=== PATIENT | male | born 1985 | race Caucasian/White ===

== ENCOUNTER 2016-12-19 08:39 | Emergency (ER) | payer OTHER ==
[~2016-12-19] VITALS: Ht 172.7 cm; Wt 83.6 kg
[~2016-12-19 08:39] MED LIST: MULT-506 PO
[2016-12-19 08:42] VITALS: BP 156/100; TEMP 36.6; Ht 172.7 cm; Wt 83.6 kg
[2016-12-19] MEDS ORDERED: KETO10TA PO (09:26)
[2016-12-19 09:33] VITALS: PULSE 65; O2SAT 97
--- NOTE | 2016-12-19 15:48 | EMERGENCY ROOM VISIT NOTE ---
ED Visit Note First contact with patient: 08:47 CHIEF COMPLAINT: Tooth pain. HISTORY OF PRESENT ILLNESS: Mr. Nick is a 31-year-old white male who ambulates into the complaining of dental pain. He approximately 2 weeks ago he tooth #30 while chewing food. He has had no pain for 2 weeks until last night. He reports an acute onset of a throbbing discomfort. Since its onset approximately 12 hours ago his pain has been constant. He currently rates his discomfort 9/10. He reports radiation of his pain up into the temporal area and down into the right lateral neck. His pain worsens with palpation of the tooth. He has not identified any alleviating factors related to the pain. He reports he has been using ibuprofen without relief of his discomfort. He denies any associated symptoms including fevers, chills, sweats, skin eruptions, skin color changes, difficulty swallowing, difficulty speaking, facial swelling. REVIEW OF SYSTEMS: As noted above in History of Present Illness. 8 body systems were reviewed with this patient and found to be negative unless noted above otherwise. PMH: Asthma, bronchitis, pneumonia. CURRENT MEDICATION: Patient denies. ALLERGIES TO MEDICATION: Tramadol. SOCIAL HISTORY: Patient is currently employed; he feels safe in his home environment; he denies tobacco and alcohol use. PHYSICAL EXAM: Vital Signs: Date Time Temp Pulse Resp B/P Pulse Ox O2 Delivery O2 Flow Rate FiO2 12/19/16 09:33 65 17 97 12/19/16 08:42 36.6 61 18 156/100 100 Room Air General: 31 year-old white male in mild distress due to pain, nontoxic appearing , afebrile and hemodynamically stable. Neurological: Awake, alert and oriented to person, place and time. Answering questions appropriately and following commands. Normal gait. Good hand eye coordination. No focal motor or sensory deficits. Skin: Warm, dry and pink. No soft tissue lesions, rashes, or trauma noted. HEENT: Atraumatic and normocephalic. Oral cavity is moist and pink. Airway is patent. Uvula is midline and no abscesses are seen. Speech is normal. No intraoral trauma is noted. No gingival erythema or edema. Multiple areas of tooth decay is noted; most specifically tooth #30 has had what appears to be at least 2 caries filled. No abscesses observed were palpated. No cervical or submandibular lymphadenopathy. ED COURSE: Patient is assessed as noted above. Patient is on currently a medication treatment plan for his previous chronic pains. In reviewing his medical records he has been seen her multiple times over the years for dental injuries and dental trauma. He has not followed up with dentistry because he reports he is not having any health insurance at the current time because he is laid off. We did have a lengthy conversation about conservative measures for managing his current pain. Patient is educated about his findings and instructed on his treatment plan; he verbalizes understanding and agreement with this plan. CLINIC IMPRESSION: Dentalgia. DISPOSITION: Patient discharged home in stable condition; prior to departure she was reassessed and subjectively reported she was feeling better and rated his discomfort 5/10. PLAN: Use 10 mg of Toradol every 6 hours for pain and alternate every 3 hours with 650 mg of acetaminophen. Consider covering your affected teeth with dental wax and using a liquid/ mechanical soft diet as we discussed. You may follow-up with Dr. Marquez Keller, DMD You should return ED for worsening symptoms, fevers, facial swelling or any new/ concerning symptoms.
== END 2016-12-19 09:34 | disposition home or self-care (01) ==
LOC: C.EDB 08:41
DX: K08.89 Other specified disorders of teeth and supporting structures (principal); J45.909 Unspecified asthma, uncomplicated

== ENCOUNTER 2017-01-28 07:35 | Emergency (ER) | payer OTHER ==
[~2017-01-28] VITALS: Ht 172.7 cm; Wt 83.7 kg
[2017-01-28 07:36] VITALS: TEMP 36.7; Ht 172.7 cm; Wt 83.7 kg
[2017-01-28] MEDS ORDERED: hydrOXYzine HCL 25 MG TAB PO STA (08:14)
--- NOTE | 2017-01-28 08:22 | EMERGENCY ROOM VISIT NOTE ---
History First contact with patient: 08:12 Chief Complaint: MENTAL HEALTH EVALUATION Stated Complaint: SICK IN STOMACH, DEPRESSED History of Present Illness The patient is a 31 year old male who presents to the Emergency Room with complaints of depression. The patient is an IV drug user who over the last week has restarted taking Heroin (last use 4 days ago) and Methamphetamines (last use 8 hours ago). His 3 weeks ago as a result of a brain aneurysm and since then has felt more depressed. He currently feels safe at home, denies suicidal or homicidal ideations, and has never attempted to commit suicide in the past. He states he has overdosed 3 times previously but never actually been taken to the hospital. He states that he feels if he goes home his depression will drive him into deeper drug use and he is worried about his health. He has not slept in 5 days on his current drug binge. He has chronic hepatitis C. He has been in inpatient rehab in 2013, then was arrested afterwards for theft and heroin possession. He is currently on probation and stated he cannot go to rehab because he will lose his job and go back to senior care. He would like to be admitted for inpatient therapy because he cannot think right and is worried his drug use will hurt himself at this point. Review of Systems See HPI for pertinent positives and negatives. A total of ten systems were reviewed and were otherwise negative. Past Medical/Surgical History Medical Problems: (1) ANXIETY STATE NOS (2) ASTHMA, UNSPECIFIED, W (ACUTE) EXACERBATION (3) BACKACHE NOS (4) Bronchitis (5) CHRONIC SINUSITIS NOS (6) FAM HX-CARDIOVAS DIS NEC (7) FAM HX-DIABETES MELLITUS (8) FAM HX-ISCHEM HEART DIS (9) FAMILY HISTORY OF OTHER CARDIOVASCULAR DISEASES (10) Pneumonia (11) VASECTOMY STATUS Family History Cancer Diabetes mellitus Heart disease Hypertension Lung disease Social History Smoking Status: Never Smoker Alcohol Use: occasionally Drug Use: none Marital Status: , in relationship Occupation Status: employed Current/Historical Medications Scheduled [heroine ], Unknown Dose INJ DAILY [meth], Unknown Dose INH DAILY Allergies Coded Allergies: Animal Dander (Unverified Allergy, Unknown, WATERY EYES, RUNNY NOSE, SNEEZING, 01/28/17) Tramadol (Verified Allergy, Unknown, SEIZURE, 01/28/17) Physical Exam Vital Signs Date Time Temp Pulse Resp B/P (MAP) Pulse Ox O2 Delivery O2 Flow Rate FiO2 01/28/17 13:51 117 20 120/79 100 01/28/17 12:51 77 20 130/80 97 01/28/17 11:19 80 20 125/85 96 01/28/17 09:40 94 20 128/86 95 Room Air 01/28/17 07:36 36.7 120 18 147/81 98 Room Air Physical Exam GENERAL: Awake, alert, in no distress HENT: Normocephalic, atraumatic. Oropharynx unremarkable. Lesions on the side of his inner cheeks due to biting from meth use. EYES: Normal conjunctiva. Sclera non-icteric. NECK: Supple. trachea midline. RESPIRATORY: Clear to auscultation. CARDIAC: Regular rate, normal rhythm. Extremities warm and well perfused. Pulses equal. ABDOMEN: Soft, non-distended. No tenderness to palpation. No rebound or guarding. No masses. RECTAL: Deferred. MUSCULOSKELETAL: Chest examination reveals no tenderness. LOWER EXTREMITIES: Calves are equal size bilaterally and non-tender. No edema. No discoloration. NEURO: Normal sensorium. No sensory or motor deficits noted. SKIN: Abrasion over right elbow from fall Medical Decision & Procedures Laboratory Results 01/28/17 09:00 Red Blood Count 5.97, Mean Corpuscular Volume 81.7, Mean Corpuscular Hemoglobin 28.0, Mean Corpuscular Hemoglobin Concent 34.2, Mean Platelet Volume 10.6, Neutrophils (%) (Auto) 61.5, Lymphocytes (%) (Auto) 21.0, Monocytes (%) (Auto) 13.4, Eosinophils (%) (Auto) 3.0, Basophils (%) (Auto) 0.4, Neutrophils # (Auto ) 6.15, Lymphocytes # (Auto) 2.10, Monocytes # (Auto) 1.34, Eosinophils # (Auto ) 0.30, Basophils # (Auto) 0.04 01/28/17 09:00 Test 01/28/17 09:00 White Blood Count 10.00 K/uL (4.8-10.8) Red Blood Count 5.97 M/uL (4.7-6.1) Hemoglobin 16.7 g/dL (14.0-18.0) Hematocrit 48.8 % (42-52) Mean Corpuscular Volume 81.7 fL (80-100) Mean Corpuscular Hemoglobin 28.0 pg (25-34) Mean Corpuscular Hemoglobin Concent 34.2 g/dl (32-36) Platelet Count 339 K/uL (130-400) Mean Platelet Volume 10.6 fL (7.4-10.4) Neutrophils (%) (Auto) 61.5 % Lymphocytes (%) (Auto) 21.0 % Monocytes (%) (Auto) 13.4 % Eosinophils (%) (Auto) 3.0 % Basophils (%) (Auto) 0.4 % Neutrophils # (Auto) 6.15 K/uL (1.4-6.5) Lymphocytes # (Auto) 2.10 K/uL (1.2-3.4) Monocytes # (Auto) 1.34 K/uL (0.11-0.59) Eosinophils # (Auto) 0.30 K/uL (0-0.5) Basophils # (Auto) 0.04 K/uL (0-0.2) RDW Standard Deviation 40.7 fL (36.4-46.3) RDW Coefficient of Variation 13.6 % (11.5-14.5) Immature Granulocyte % (Auto) 0.7 % Immature Granulocyte # (Auto) 0.07 K/uL (0.00-0.02) Anion Gap 9.0 mmol/L (3-11) Est Creatinine Clear Calc Drug Dose 92.3 ml/min Estimated GFR () 91.5 Estimated GFR (Non- 79.0 BUN/Creatinine Ratio 13.6 (10-20) Calcium Level 9.0 mg/dl (8.5-10.1) Thyroid Stimulating Hormone (TSH) 3.590 uIu/ml (0.300-4.500) Ethyl Alcohol mg/dL < 3.0 mg/dl (0-3) Medications Administered Medications (Trade) Dose Ordered Sig/Bradley Route Start Time Stop Time Status Last Admin Dose Admin Hydroxyzine HCl (Vistaril Tab) 25 mg NOW STAT PO 01/28/17 08:14 01/28/17 08:15 DC 01/28/17 08:14 25 MG Departure Information Referrals No Doctor, Assigned (PCP) Patient Instructions My [facility]
--- NOTE | 2017-01-28 08:35 | EMERGENCY ROOM VISIT NOTE ---
History Report prepared by [place]: Sailaja Little Under the Supervision of: Dr. Zabrina Garcia M.D. First contact with patient: 07:48 Chief Complaint: MENTAL HEALTH EVALUATION Stated Complaint: SICK IN STOMACH, DEPRESSED History of Present Illness The patient is a 31 year old male who presents to the Emergency Room for a mental health evaluation after feeling worsening depression over the last 3 weeks. The patient states that his friend of a brain aneurysm 3 weeks ago and he has been feeling more depressed since her . He reports that he started using heroin and methamphetamines when he was 28 years old and was arrested for theft and possession before going to senior care. He notes that he went to rehab after he was released from senior care and had been clean following rehab. The patient states that he has been feeling more depressed since his friend and started using heroin and meth again. He notes that his last heroin use was 5 days ago and his last meth use was 5 hours ago. He reports that he has not been sleeping over the last 5 days and does not want to use drugs anymore. He would like to stay here in the hospital for 3 days but is concerned with staying inpatient as he is on parole. The patient reports a history of Hepatitis C. He denies any suicidal or homicidal ideation. Source of History: patient Onset: 3 weeks ago Position: other (mental health) Quality: other (depression) Timing: constant Modifying Factors (Worsening): other (wifes ) Note: Pt denies suicidal or homicidal ideation. Review of Systems See HPI for pertinent positives & negatives. A total of 10 systems reviewed and were otherwise negative. Past Medical & Surgical Medical Problems: (1) ANXIETY STATE NOS (2) ASTHMA, UNSPECIFIED, W (ACUTE) EXACERBATION (3) BACKACHE NOS (4) Bronchitis (5) CHRONIC SINUSITIS NOS (6) FAM HX-CARDIOVAS DIS NEC (7) FAM HX-DIABETES MELLITUS (8) FAM HX-ISCHEM HEART DIS (9) FAMILY HISTORY OF OTHER CARDIOVASCULAR DISEASES (10) Pneumonia (11) VASECTOMY STATUS Family History Cancer Diabetes mellitus Heart disease Hypertension Lung disease Social History Smoking Status: Never Smoker Alcohol Use: occasionally Drug Use: heroin, other (meth) Marital Status: Housing Status: lives alone Occupation Status: employed Current/Historical Medications Scheduled [heroine ], Unknown Dose INJ DAILY [meth], Unknown Dose INH DAILY Allergies Coded Allergies: Animal Dander (Unverified Allergy, Unknown, WATERY EYES, RUNNY NOSE, SNEEZING, 01/28/17) Tramadol (Verified Allergy, Unknown, SEIZURE, 01/28/17) Physical Exam Vital Signs Date Time Temp Pulse Resp B/P Pulse Ox O2 Delivery O2 Flow Rate FiO2 01/28/17 13:51 117 20 120/79 100 01/28/17 12:51 77 20 130/80 97 01/28/17 11:19 80 20 125/85 96 01/28/17 09:40 94 20 128/86 95 Room Air 01/28/17 07:36 36.7 120 18 147/81 98 Room Air Physical Exam Vital signs reviewed. General: Well-appearing 31 yo male, disheveled, in no significant distress. HEENT: No scleral icterus, PERRLA, neck supple. Atraumatic. Cardiovascular: Regular rate and rhythm, no extra sounds. Pulmonary: Clear to auscultation bilaterally, normal work of breathing. Abdomen: Soft, nontender, nondistended, positive bowel sounds. Musculoskeletal: Atraumatic, no peripheral edema. Neurologic: Patient awake alert and oriented x 3, full strength in all 4 extremities. Cranial nerves 2 through 12 grossly intact. Skin: Warm, dry, no rash Psych: Denies suicidal or homicidal ideations. Medical Decision & Procedures Laboratory Results 01/28/17 09:00 Red Blood Count 5.97, Mean Corpuscular Volume 81.7, Mean Corpuscular Hemoglobin 28.0, Mean Corpuscular Hemoglobin Concent 34.2, Mean Platelet Volume 10.6, Neutrophils (%) (Auto) 61.5, Lymphocytes (%) (Auto) 21.0, Monocytes (%) (Auto) 13.4, Eosinophils (%) (Auto) 3.0, Basophils (%) (Auto) 0.4, Neutrophils # (Auto ) 6.15, Lymphocytes # (Auto) 2.10, Monocytes # (Auto) 1.34, Eosinophils # (Auto ) 0.30, Basophils # (Auto) 0.04 01/28/17 09:00 Test 01/28/17 09:00 White Blood Count 10.00 K/uL (4.8-10.8) Red Blood Count 5.97 M/uL (4.7-6.1) Hemoglobin 16.7 g/dL (14.0-18.0) Hematocrit 48.8 % (42-52) Mean Corpuscular Volume 81.7 fL (80-100) Mean Corpuscular Hemoglobin 28.0 pg (25-34) Mean Corpuscular Hemoglobin Concent 34.2 g/dl (32-36) Platelet Count 339 K/uL (130-400) Mean Platelet Volume 10.6 fL (7.4-10.4) Neutrophils (%) (Auto) 61.5 % Lymphocytes (%) (Auto) 21.0 % Monocytes (%) (Auto) 13.4 % Eosinophils (%) (Auto) 3.0 % Basophils (%) (Auto) 0.4 % Neutrophils # (Auto) 6.15 K/uL (1.4-6.5) Lymphocytes # (Auto) 2.10 K/uL (1.2-3.4) Monocytes # (Auto) 1.34 K/uL (0.11-0.59) Eosinophils # (Auto) 0.30 K/uL (0-0.5) Basophils # (Auto) 0.04 K/uL (0-0.2) RDW Standard Deviation 40.7 fL (36.4-46.3) RDW Coefficient of Variation 13.6 % (11.5-14.5) Immature Granulocyte % (Auto) 0.7 % Immature Granulocyte # (Auto) 0.07 K/uL (0.00-0.02) Anion Gap 9.0 mmol/L (3-11) Est Creatinine Clear Calc Drug Dose 92.3 ml/min Estimated GFR () 91.5 Estimated GFR (Non- 79.0 BUN/Creatinine Ratio 13.6 (10-20) Calcium Level 9.0 mg/dl (8.5-10.1) Thyroid Stimulating Hormone (TSH) 3.590 uIu/ml (0.300-4.500) Ethyl Alcohol mg/dL < 3.0 mg/dl (0-3) Laboratory results per my review. Medications Administered Medications (Trade) Dose Ordered Sig/Bradley Route Start Time Stop Time Status Last Admin Dose Admin Hydroxyzine HCl (Vistaril Tab) 25 mg NOW STAT PO 01/28/17 08:14 01/28/17 08:15 DC 01/28/17 08:14 25 MG ECG Indication: toxicologic Rate (beats per minute): 81 Rhythm: normal sinus Findings: other (J point elevation consistent with early repolarization ) ED Course 0758: Past medical records reviewed. The patient was evaluated in room A7. A complete history and physical examination was performed. 0814: Vistaril Tab 25mg PO. 1204: The patient feels safe at home and does not qualify for inpatient psychiatric care. 1314: Upon reevaluation, the patient appeared to have improvement of his symptoms. I discussed findings with the patient. He verbalized agreement of the treatment plan. The patient was discharged home with a ride. Medical Decision Differential diagnosis: Etiologies such as mood disorder, infection, hypoglycemia, electrolyte abnormalities, cardiac sources, intracerebral event, toxicologic, neurologic, as well as others were entertained. Medication Reconciliation: I attest that I have personally reviewed the patient' s current medication list. Blood Pressure Screening: Patient was found to have normal blood pressure on screening and does not require follow-up. This patient was evaluated and appeared to be in no significant distress. The patient is requesting inpatient treatment for his "depression" and his fear of becoming suicidal in light of his recent drug binge. The patient denies any mental health admissions previously however states he was admitted to [facility] several years ago. The patient was medically cleared and evaluated by the 3 S. nurse liaison, Brianna. The patient's case was discussed with Dr. Maciel and he has felt not to meet criteria for inpatient psychiatric treatment. The patient is making no suicidal statements. I do believe the patient has a large component of substance abuse as it relates to his mood disorder. Outpatient resources were given to the patient. He was discharged to a friend and advised to follow-up with his primary care physician. He will return to the ER for worsening of symptoms or any medical concerns. Impression Primary Impression: Substance abuse Additional Impression: Mood disorder Scribe Attestation The scribe's documentation has been prepared under my direction and personally reviewed by me in its entirety. I confirm that the note above accurately reflects all work, treatment, procedures, and medical decision making performed by me. Departure Information Dispostion Home / Self-Care Referrals No Doctor, Assigned (PCP) Forms HOME CARE DOCUMENTATION FORM, IMPORTANT VISIT INFORMATION Patient Instructions My [facility] Additional Instructions Please follow up with outpatient resources as discussed. Return to emergency for worsening of symptoms or any medical concerns. Problem Qualifiers
[2017-01-28] MEDS ORDERED: [UNRECOGNIZED DRUG - REMARK] INJ (08:52)
[2017-01-28] MEDS ORDERED: meth INH (08:52)
[2017-01-28 09:23] LABS: BASO % 0.4 %; BASO ABS # 0.04 K/uL (0-0.2); COMPLETE YES; HEMATOCRIT 48.8 % (42-52); IG% 0.7 %; MEAN CELL VOLUME 81.7 fL (80-100); MEAN CORPUSCULAR HGB CONC 34.2 g/dl (32-36); MEAN PLATELET VOLUME 10.6 fL (7.4-10.4); MONO % 13.4 %; NEUT % 61.5 %; PLATELET COUNT 339 K/uL (130-400); RED BLOOD COUNT 5.97 M/uL (4.7-6.1)
[2017-01-28 09:43] LABS: BUN/CREATININE RATIO 13.6 (10-20); CREATININE 1.2 mg/dl (0.60-1.40)
[2017-01-28 09:53] LABS: THYROID STIMULATING HORMONE 3.59 uIu/ml (0.300-4.500)
[2017-01-28 13:51] VITALS: BP 120/79; PULSE 117; O2SAT 100
== END 2017-01-28 13:14 | disposition home or self-care (01) ==
LOC: C.EDB 07:36 → C.EDA 13:14
DX: F19.10 Other psychoactive substance abuse, uncomplicated (principal); F39 Unspecified mood [affective] disorder; F41.9 Anxiety disorder, unspecified; J45.909 Unspecified asthma, uncomplicated; Z88.8 Allergy status to other drugs, medicaments and biological substances; Z91.09 Other allergy status, other than to drugs and biological substances; Z98.52 Vasectomy status; Z80.9 Family history of malignant neoplasm, unspecified; Z83.3 Family history of diabetes mellitus; Z82.49 Family history of ischemic heart disease and other diseases of the circulatory system

== ENCOUNTER 2017-06-04 18:55 | Emergency (ER) | payer OTHER ==
[~2017-06-04] VITALS: Ht 174 cm; Wt 79.6 kg
[~2017-06-04 18:55] MED LIST changes: -MULT-506 PO; +[UNRECOGNIZED DRUG - REMARK] INJ; +meth INH
[2017-06-04 19:18] VITALS: TEMP 36.7; Ht 174 cm; Wt 79.6 kg
[2017-06-04] MEDS ORDERED: OPTIRAY 320 IV PRN (20:00)
[2017-06-04 20:19] LABS: BASO % 0.3 %; BASO ABS # 0.03 K/uL (0-0.2); COMPLETE YES; EOS % 1.9 %; HEMATOCRIT 38.1 % (42-52); IG% 0.1 %; LYMPH % 26.1 %; LYMPH ABS # 2.62 K/uL (1.2-3.4); MEAN CELL VOLUME 79.2 fL (80-100); MEAN CORPUSCULAR HEMOGLOBIN 26.4 pg (25-34); MEAN CORPUSCULAR HGB CONC 33.3 g/dl (32-36); MEAN PLATELET VOLUME 10.3 fL (7.4-10.4); MONO % 11.2 %; NEUT % 60.4 %; PLATELET COUNT 334 K/uL (130-400); RED BLOOD COUNT 4.81 M/uL (4.7-6.1); WHITE BLOOD COUNT 10.04 K/uL (4.8-10.8)
[2017-06-04 20:36] LABS: BUN/CREATININE RATIO 11.3 (10-20); CALCIUM 8.8 mg/dl (8.5-10.1); CREATININE 1.2 mg/dl (0.60-1.40); POTASSIUM 3.7 mmol/L (3.5-5.1)
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
[2017-06-04] MEDS ORDERED: CYCL10TA6 PO (23:20)
[2017-06-04] MEDS ORDERED: FLEXERIL HOME PACK 10 MG VIAL PO ONE (23:30)
[2017-06-04 23:46] VITALS: BP 129/66; PULSE 52; O2SAT 98
== END 2017-06-04 23:53 | disposition home or self-care (01) ==
LOC: C.EDB 18:56 → C.EDD 23:53
DX: M54.5 Low back pain (principal); R10.84 Generalized abdominal pain; V89.2XXA Person injured in unspecified motor-vehicle accident, traffic, initial encounter; F41.9 Anxiety disorder, unspecified; J45.909 Unspecified asthma, uncomplicated; Z83.3 Family history of diabetes mellitus; Z82.49 Family history of ischemic heart disease and other diseases of the circulatory system; Z87.01 Personal history of pneumonia (recurrent); Z98.52 Vasectomy status

== ENCOUNTER 2018-01-12 16:08 | Emergency (ER) | payer OTHER ==
[~2018-01-12] VITALS: Ht 172.7 cm; Wt 84.4 kg
[2018-01-12 16:11] VITALS: TEMP 36.7; Ht 172.7 cm; Wt 84.4 kg
[2018-01-12] MEDS ORDERED: CEFTRIAXONE SOD INJ 1 GM ADDVIAL IV STA (16:28)
[2018-01-12] MEDS ORDERED: SODIUM CHLORIDE 0.9% 1000ML 1,000 ML IV STA (16:28)
[2018-01-12] MEDS ORDERED: BUPR8SUB19 SL (16:41)
[2018-01-12 17:08] LABS: BASO % 0.2 %; BASO ABS # 0.02 K/uL (0-0.2); EOS % 3.5 %; HEMATOCRIT 39.5 % (42-52); HEMOGLOBIN 13.8 g/dL (14.0-18.0); IG# 0.03 K/uL (0.00-0.02); LYMPH % 24.1 %; LYMPH ABS # 2.05 K/uL (1.2-3.4); MEAN CELL VOLUME 78.8 fL (80-100); MEAN CORPUSCULAR HEMOGLOBIN 27.5 pg (25-34); MEAN CORPUSCULAR HGB CONC 34.9 g/dl (32-36); MEAN PLATELET VOLUME 10.1 fL (7.4-10.4); MONO % 14.3 %; MONO ABS # 1.21 K/uL (0.11-0.59); NEUT % 57.5 %; NEUT ABS # 4.88 K/uL (1.4-6.5); PLATELET COUNT 217 K/uL (130-400); RED CELL DISTRIBUTION WIDTH CV 12.9 % (11.5-14.5); RED CELL DISTRIBUTION WIDTH SD 36.8 fL (36.4-46.3); WHITE BLOOD COUNT 8.49 K/uL (4.8-10.8)
[2018-01-12 17:16] LABS: PTT PATIENT 30.1 SECONDS (21.0-31.0)
--- NOTE | 2018-01-12 17:16 | DIAGNOSTIC IMAGING REPORT ---
R HAND MIN 3 VIEWS ROUTINE CLINICAL HISTORY: 32 years-old Male presenting with right hand swelling/pain/redness, hx. heroin use. TECHNIQUE: Frontal, oblique, and lateral views of the right hand were obtained. COMPARISON: 02/12/2010. FINDINGS: No osseous erosion or periosteal reaction. No acute fracture or malalignment. No advanced degenerative change. Diffuse soft tissue swelling. Primarily over the dorsum of the hand. No soft tissue emphysema. IMPRESSION: No radiographic evidence of osteomyelitis. Electronically signed by: Connor Hu M.D. 01/12/2018 5:14 PM Dictated Date/Time: 01/12/2018 5:12 PM
[2018-01-12 17:23] LABS: ALBUMIN 3.5 gm/dl (3.4-5.0); ALT/SGPT 39 U/L (12-78); BLOOD UREA NITROGEN 12 mg/dl (7-18); CALCIUM 8.8 mg/dl (8.5-10.1); CARBON DIOXIDE 29 mmol/L (21-32); CREATININE 1.11 mg/dl (0.60-1.40); GLUCOSE 90 mg/dl (70-99); SODIUM 136 mmol/L (136-145)
[2018-01-12 17:28] LABS: ALKALINE PHOSPHATASE 59 U/L (45-117); AST/SGOT 34 U/L (15-37); TOTAL PROTEIN 7.7 gm/dl (6.4-8.2)
--- NOTE | 2018-01-12 17:35 | DIAGNOSTIC IMAGING REPORT ---
R WRIST W/NAVICULAR MIN 3 VIEWS CLINICAL HISTORY: 32 years-old Male presenting with right wrist swelling/pain/redness, hx. heroin use. TECHNIQUE: Frontal, bilateral oblique, lateral, and scaphoid views of the right wrist were obtained. COMPARISON: 02/12/2010. FINDINGS: No periosteal reaction or osseous erosion. No acute fracture or malalignment. No advanced degenerative change. Extensive soft tissue swelling. No soft tissue emphysema. IMPRESSION: No radiographic evidence of osteomyelitis. MR is more sensitive for this diagnosis. Electronically signed by: Connor Hu M.D. 01/12/2018 5:34 PM Dictated Date/Time: 01/12/2018 5:30 PM
--- NOTE | 2018-01-12 17:51 | DIAGNOSTIC IMAGING REPORT ---
R EXTREMITY NONVASCULAR LIMITED CLINICAL HISTORY: 32 years-old Male presenting with right hand/wrist swelling/red, assess for abscess, heroin use. TECHNIQUE: Real-time grayscale Doppler ultrasound imaging of the right hand was performed for a focused evaluation at the site of clinical concern. Color Doppler ultrasound imaging was also performed. COMPARISON: Plain radiographs performed earlier the same day. FINDINGS: Extensive skin thickening and subcutaneous edema at the site of clinical interest. Hyperemia also evident. No focal fluid collection. Patent vasculature. No sonographic evidence of foreign body. IMPRESSION: 1. Findings most consistent with cellulitis. No evidence of abscess or foreign body. Electronically signed by: Connor Hu M.D. 01/12/2018 5:50 PM Dictated Date/Time: 01/12/2018 5:49 PM
[2018-01-12] MEDS ORDERED: SULF800T23 PO (18:48)
[2018-01-12] MEDS ORDERED: CEPH500C PO (18:48)
--- NOTE | 2018-01-12 18:49 | EMERGENCY ROOM VISIT NOTE ---
ED Visit Note First contact with patient: 16:15 CHIEF COMPLAINT: Infection of the right hand HISTORY OF PRESENT ILLNESS: This 32-year-old male patient presents to the emergency department, ambulatory, complaining of swelling and redness of the right hand. The patient is an IV drug user. He states he was shooting up heroin in his right hand on the anterior and posterior medial aspects 2 days ago. He states he noticed the pain yesterday and significantly worsening today. He states today, the pain is increased and radiating up his arms. The area has become red, warm, and very painful. 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 He does report some diaphoresis, chills, and fatigue. The patient denies fever, nausea, or loss of appetite. Movement of the hands and wrist is moderately decreased because of the pain. The patient's tetanus shot is up to date. REVIEW OF SYSTEMS: A review of systems was performed with positives and pertinent negatives listed in the history of present illness. All other systems were reviewed and are negative. ALLERGIES: Animal dander, tramadol MEDICATIONS: None PMH: None SOCIAL HISTORY: The patient lives locally with family. He is an IV drug user. He denies alcohol, tobacco use. PHYSICAL EXAM: Vital Signs: Reviewed Nurse's notes, Temperature 36.7C, vital signs stable. GENERAL: This is a 32-year-old white male, in no acute distress, is non toxic in appearance, well-developed, well-nourished. SKIN: The right hand is red, warm, very tender, and swollen from the MCPs to the proximal wrist. There is no lymphangitic streaking. There is no discharge. There is fluctuance. There is a small area of induration on the anterior medial aspect of the wrist. HEART: Regular rate and rhythm without murmur, gallop, or rub. LUNGS: Clear to auscultation bilaterally without wheezes, rales, or rhonchi. NEURO: Alert and oriented to person, place, and time. Normal sensation to light and sharp touch. Capillary reflex less than 2 seconds. Peripheral pulses 2 + bilaterally. RADIOLOGY: R WRIST W/NAVICULAR MIN 3 VIEWS CLINICAL HISTORY: 32 years-old Male presenting with right wrist swelling/pain/redness, hx. heroin use. TECHNIQUE: Frontal, bilateral oblique, lateral, and scaphoid views of the right wrist were obtained. COMPARISON: 02/12/2010. FINDINGS: No periosteal reaction or osseous erosion. No acute fracture or malalignment. No advanced degenerative change. Extensive soft tissue swelling. No soft tissue emphysema. IMPRESSION: No radiographic evidence of osteomyelitis. MR is more sensitive for this diagnosis. Electronically signed by: Connor Hu M.D. 01/12/2018 5:34 PM Dictated Date/Time: 01/12/2018 5:30 PM R HAND MIN 3 VIEWS ROUTINE CLINICAL HISTORY: 32 years-old Male presenting with right hand swelling/pain/redness, hx. heroin use. TECHNIQUE: Frontal, oblique, and lateral views of the right hand were obtained. COMPARISON: 02/12/2010. FINDINGS: No osseous erosion or periosteal reaction. No acute fracture or malalignment. No advanced degenerative change. Diffuse soft tissue swelling. Primarily over the dorsum of the hand. No soft tissue emphysema. IMPRESSION: No radiographic evidence of osteomyelitis. Electronically signed by: Connor Hu M.D. 01/12/2018 5:14 PM Dictated Date/Time: 01/12/2018 5:12 PM R EXTREMITY NONVASCULAR LIMITED CLINICAL HISTORY: 32 years-old Male presenting with right hand/wrist swelling/red, assess for abscess, heroin use. TECHNIQUE: Real-time grayscale Doppler ultrasound imaging of the right hand was performed for a focused evaluation at the site of clinical concern. Color Doppler ultrasound imaging was also performed. COMPARISON: Plain radiographs performed earlier the same day. FINDINGS: Extensive skin thickening and subcutaneous edema at the site of clinical interest. Hyperemia also evident. No focal fluid collection. Patent vasculature. No sonographic evidence of foreign body. IMPRESSION: 1. Findings most consistent with cellulitis. No evidence of abscess or foreign body. Electronically signed by: Connor Hu M.D. 01/12/2018 5:50 PM Dictated Date/Time: 01/12/2018 5:49 PM EMERGENCY DEPARTMENT COURSE: I examined the patient. IV access obtained, labs drawn. Blood cultures drawn. Imaging performed and reviewed by myself and radiologist as above. Labs reveal very mild anemia. There is no leukocytosis or thrombocytopenia. CMP is without renal, hepatic, electrolyte abnormalities. Troponin is negative. C-reactive protein is elevated at 3.31. Coagulation studies are normal. Urine drug screen was positive for opiates and cocaine. Urinalysis did not reveal signs of infection or blood. The patient was given 1 g IV Rocephin and 1 L normal saline solution. The redness and swelling seem to have mildly improved. He is afebrile and labs are without significant abnormality, and I do feel that outpatient treatment with antibiotics is reasonable. I did discuss the importance of close outpatient follow-up with the patient. He was advised to return to the emergency department where his PCP in 24 hours for recheck of the wound. The patient verbalized understanding. He was encouraged to avoid drug use, specifically in the right hand or wrist, as I discussed the dangers of introducing new bacteria into an already infected wound. The patient verbalized understanding. Discharge instructions reviewed, the patient was discharged home in good condition. I attest that I have personally reviewed the patient's current medication list. Patient was found to have normal blood pressure on screening and does not require follow-up. Differential diagnosis includes cellulitis, abscess, DVT, superficial thrombus, septic joint, necrotizing fasciitis, burn, dermatitis, impetigo, erythema multiforme, bite, osteomyelitis, Lee-Kleber Syndrome, gangrene, malignancy , and others DIAGNOSIS: Cellulitis of the right hand, IV drug use The chart was completed utilizing The [employer] Speech voice recognition software. Grammatical errors, random word insertions, pronoun errors, and incomplete sentences are an occasional consequence of this system due to software limitations, ambient noise, and hardware issues. Any formal questions or concerns about the content, text, or information contained within the body of this dictation should be directly addressed to the provider for clarification. Problem List Medical Problems: (1) ANXIETY STATE NOS Status: Chronic (2) ASTHMA, UNSPECIFIED, W (ACUTE) EXACERBATION Status: Chronic (3) BACKACHE NOS Status: Chronic (4) Bronchitis Status: Resolved (5) CHRONIC SINUSITIS NOS Status: Chronic (6) FAM HX-CARDIOVAS DIS NEC Status: Chronic (7) FAM HX-DIABETES MELLITUS Status: Chronic (8) FAM HX-ISCHEM HEART DIS Status: Chronic (9) FAMILY HISTORY OF OTHER CARDIOVASCULAR DISEASES Status: Chronic (10) Pneumonia Status: Resolved (11) VASECTOMY STATUS Status: Resolved Current/Historical Medications Scheduled Buprenorphine Hcl (Subutex), 8 MG SL BID Cephalexin Monohydrate (Keflex), 500 MG PO QID Sulfa/Trimethoprim (Bactrim Ds 800MG/160MG), 1 TAB PO BID Allergies Coded Allergies: Animal Dander (Unverified Allergy, Unknown, WATERY EYES, RUNNY NOSE, SNEEZING, 01/28/17) Tramadol (Verified Allergy, Unknown, SEIZURE, 01/28/17) Vital Signs Date Time Temp Pulse Resp B/P (MAP) Pulse Ox O2 Delivery O2 Flow Rate FiO2 01/12/18 18:55 69 18 128/82 99 01/12/18 18:11 75 18 134/84 99 Room Air 01/12/18 16:11 36.7 65 18 128/80 100 Room Air Laboratory Results 01/12/18 16:51 Red Blood Count 5.01, Mean Corpuscular Volume 78.8, Mean Corpuscular Hemoglobin 27.5, Mean Corpuscular Hemoglobin Concent 34.9, Mean Platelet Volume 10.1, Neutrophils (%) (Auto) 57.5, Lymphocytes (%) (Auto) 24.1, Monocytes (%) (Auto) 14.3, Eosinophils (%) (Auto) 3.5, Basophils (%) (Auto) 0.2, Neutrophils # (Auto ) 4.88, Lymphocytes # (Auto) 2.05, Monocytes # (Auto) 1.21, Eosinophils # (Auto ) 0.30, Basophils # (Auto) 0.02 01/12/18 16:51 Test 01/12/18 16:51 01/12/18 17:02 01/12/18 17:14 White Blood Count 8.49 K/uL (4.8-10.8) Red Blood Count 5.01 M/uL (4.7-6.1) Hemoglobin 13.8 g/dL (14.0-18.0) Hematocrit 39.5 % (42-52) Mean Corpuscular Volume 78.8 fL (80-100) Mean Corpuscular Hemoglobin 27.5 pg (25-34) Mean Corpuscular Hemoglobin Concent 34.9 g/dl (32-36) Platelet Count 217 K/uL (130-400) Mean Platelet Volume 10.1 fL (7.4-10.4) Neutrophils (%) (Auto) 57.5 % Lymphocytes (%) (Auto) 24.1 % Monocytes (%) (Auto) 14.3 % Eosinophils (%) (Auto) 3.5 % Basophils (%) (Auto) 0.2 % Neutrophils # (Auto) 4.88 K/uL (1.4-6.5) Lymphocytes # (Auto) 2.05 K/uL (1.2-3.4) Monocytes # (Auto) 1.21 K/uL (0.11-0.59) Eosinophils # (Auto) 0.30 K/uL (0-0.5) Basophils # (Auto) 0.02 K/uL (0-0.2) RDW Standard Deviation 36.8 fL (36.4-46.3) RDW Coefficient of Variation 12.9 % (11.5-14.5) Immature Granulocyte % (Auto) 0.4 % Immature Granulocyte # (Auto) 0.03 K/uL (0.00-0.02) Prothrombin Time 10.4 SECONDS (9.0-12.0) Prothromb Time International Ratio 1.0 (0.9-1.1) Activated Partial Thromboplast Time 30.1 SECONDS (21.0-31.0) Partial Thromboplastin Ratio 1.2 Anion Gap 4.0 mmol/L (3-11) Est Creatinine Clear Calc Drug Dose 99.2 ml/min Estimated GFR () 99.9 Estimated GFR (Non- 86.2 BUN/Creatinine Ratio 10.6 (10-20) Calcium Level 8.8 mg/dl (8.5-10.1) Total Bilirubin 0.4 mg/dl (0.2-1) Aspartate Amino Transf (AST/SGOT) 34 U/L (15-37) Alanine Aminotransferase (ALT/SGPT) 39 U/L (12-78) Alkaline Phosphatase 59 U/L (45-117) Troponin I < 0.015 ng/ml (0-0.045) C-Reactive Protein 3.31 mg/dl (0-0.29) Total Protein 7.7 gm/dl (6.4-8.2) Albumin 3.5 gm/dl (3.4-5.0) Globulin 4.2 gm/dl (2.5-4.0) Albumin/Globulin Ratio 0.8 (0.9-2) Lactic Acid Level 0.8 mmol/L (0.4-2.0) Urine Color YELLOW Urine Appearance CLEAR (CLEAR) Urine pH 5.0 (4.5-7.5) Urine Specific [place] 1.022 (1.000-1.030) Urine Protein NEG (NEG) Urine Glucose (UA) NEG (NEG) Urine Ketones NEG (NEG) Urine Occult Blood NEG (NEG) Urine Nitrite NEG (NEG) Urine Bilirubin NEG (NEG) Urine Urobilinogen NEG (NEG) Urine Leukocyte Esterase NEG (NEG) Urine Opiates Screen POS (NEG) Urine Methadone, Qualitative NEG (NEG) Urine Barbiturates NEG (NEG) Urine Phencyclidine (PCP) Level NEG (NEG) Ur Amphetamine/Methamphetamine NEG (NEG) MDMA (Ecstasy) Screen NEG (NEG) Urine Benzodiazepines Screen NEG (NEG) Urine Cocaine Metabolite POS (NEG) Urine Marijuana (THC) NEG (NEG) Medications Administered Medications (Trade) Dose Ordered Sig/Bradley Route Start Time Stop Time Status Last Admin Dose Admin Ceftriaxone Sodium (Rocephin Inj) 1 gm NOW STAT IV 01/12/18 16:28 01/12/18 16:32 DC 01/12/18 17:12 1 GM Sodium Chloride 1,000 ml @ 999 mls/hr Q1H1M STAT IV 01/12/18 16:28 01/12/18 17:28 DC 01/12/18 17:13 999 MLS/HR Departure Information Impression Primary Impression: Cellulitis of right hand Additional Impression: IV drug user Dispostion Home / Self-Care Condition GOOD Prescriptions Sulfa/Trimethoprim (Bactrim Ds 800MG/160MG) Tab 1 TAB PO BID for 10 Days, #20 TAB Prov: Prachi Barreto PA-C 01/12/18 Cephalexin Monohydrate (Keflex) 500 Mg Cap 500 MG PO QID for 10 Days, #40 CAP Prov: Prachi Barreto PA-C 01/12/18 Referrals No Doctor, Assigned (PCP) Patient Instructions ED Infec Skin Cellulitis, [facility] Additional Instructions You were seen in the emergency department today for cellulitis of your right hand. You were given IV antibiotics. As discussed, this infection can worsen significantly very quickly. You should avoid any IV drug use, especially in the area of the cellulitis, so you do not reintroduce bacteria into the already infected hand. Ibuprofen(Motrin, Advil) may be used for fever or pain. Use 600mg every six hours as needed. Take with food. Avoid using more than 2400mg in a 24 hour period. Do not use 2400mg per day for more than three consecutive days without physician direction. Prolonged inappropriate use can lead to stomach upset or ulcers. (AND/OR) Acetaminophen(Tylenol) may be used for fever or pain. Use 1000mg every six hours as needed. Avoid using more than 3000mg in a 24 hour period. Cephalexin(Keflex) 500mg: Take one pill four times daily for 10 days for your skin infection. All antibiotics can cause diarrhea. If this occurs and you feel worse or it does not resolve in 1-2 days follow up with your doctor or return to the Emergency Department as this could be signs of serious underlying problems. Any medication can cause an allergic reaction, stop the pills immediately and return to the ER for rash, hives, breathing difficulties, or swelling. Trimethoprim-Sulfamethoxazole(Bactrim DS): Take one pill twice daily for 10 days for your skin infection. All antibiotics can cause diarrhea. If this occurs and you feel worse or it does not resolve in 1-2 days follow up with your doctor or return to the Emergency Department as this could be signs of serious underlying problems. Any medication can cause an allergic reaction, stop the pills immediately and return to the ER for rash, hives, breathing difficulties, or swelling. Use warm, moist compresses to help relieve drainage and pain. Follow-up in 24 hours for recheck of the wound. Return immediately to the emergency department for any significantly worsening pain, swelling, numbness, tingling, fever, body aches, nausea, vomiting, or other concerning symptoms. Problem Qualifiers
[2018-01-12 18:55] VITALS: BP 128/82; PULSE 69; O2SAT 99
== END 2018-01-12 18:55 | disposition home or self-care (01) ==
LOC: C.EDB 16:10 → C.EDC 18:55
DX: L03.113 Cellulitis of right upper limb (principal); F11.90 Opioid use, unspecified, uncomplicated; F14.90 Cocaine use, unspecified, uncomplicated; R79.82 Elevated C-reactive protein (CRP); D64.9 Anemia, unspecified; J45.909 Unspecified asthma, uncomplicated; Z88.6 Allergy status to analgesic agent; Z91.048 Other nonmedicinal substance allergy status

== ENCOUNTER 2018-01-15 19:31 | Emergency (ER) | payer OTHER ==
[~2018-01-15] VITALS: Ht 172.7 cm; Wt 79.5 kg
[~2018-01-15 19:31] MED LIST changes: +BUPR8SUB19 SL; +CEPH500C PO; +SULF800T23 PO; -[UNRECOGNIZED DRUG - REMARK] INJ; -meth INH
[2018-01-15 19:45] VITALS: TEMP 36.6; Ht 172.7 cm; Wt 79.5 kg
--- NOTE | 2018-01-15 20:01 | EMERGENCY ROOM VISIT NOTE ---
History Report prepared by Asia: Michelle Chua Under the Supervision of: Dr. Sawyer Singh M.D. 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 Negative vomiting, fevers, chills. 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 He also notes that his hand is very tender and that an ice pack alleviates his pain for around an hour. 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 A total of ten systems were reviewed and were otherwise negative. Past Medical & Surgical Medical Problems: (1) ANXIETY STATE NOS (2) ASTHMA, UNSPECIFIED, W (ACUTE) EXACERBATION (3) BACKACHE NOS (4) Bronchitis (5) CHRONIC SINUSITIS NOS (6) FAM HX-CARDIOVAS DIS NEC (7) FAM HX-DIABETES MELLITUS (8) FAM HX-ISCHEM HEART DIS (9) FAMILY HISTORY OF OTHER CARDIOVASCULAR DISEASES (10) Pneumonia (11) VASECTOMY STATUS Family History Cancer Diabetes mellitus Heart disease Hypertension Lung disease Social History Smoking Status: Current Every Day Smoker Alcohol Use: occasionally Drug Use: heroin, other Marital Status: Housing Status: lives alone Occupation Status: employed Current/Historical Medications Scheduled Buprenorphine Hcl (Subutex), 8 MG SL BID Cephalexin Monohydrate (Keflex), 500 MG PO QID Sulfa/Trimethoprim (Bactrim Ds 800MG/160MG), 1 TAB PO BID Allergies Coded Allergies: Animal Dander (Verified Allergy, Unknown, WATERY EYES, RUNNY NOSE, SNEEZING, 01/15/18) Tramadol (Verified Allergy, Unknown, SEIZURE, 01/15/18) Physical Exam Vital Signs Date Time Temp Pulse Resp B/P (MAP) Pulse Ox O2 Delivery O2 Flow Rate FiO2 01/15/18 21:58 66 18 141/64 98 Room Air 01/15/18 19:45 36.6 77 20 124/76 95 Room Air Physical Exam GENERAL: Awake, alert, well-appearing, NAD, wearing broken glasses. Poor dentition. HENT: Normocephalic, atraumatic. EYES: Normal conjunctiva. Sclera non-icteric. PERRL. No anisocoria. NECK: Supple. No nuchal rigidity. FROM. RESPIRATORY: CTAB, no rhonchi, wheezing, crackles CARDIAC: RRR, no MRG ABDOMEN: Soft, NTND, BS+ MSK: No chest wall TTP, no LE edema. RUE has swelling distal to the elbow. Significant edema in the hand. Area of tenderness and erythema over the radial aspect distal right volar forearm. Central eschar. NEURO: GCS 15, CN 2-12 intact, moves all 4s on command SKIN: No rash or jaundice noted. Medical Decision & Procedures ER Provider Diagnostic Interpretation: Radiology results as stated below per my review and radiologist interpretation: ULTRASOUND RIGHT UPPER EXTREMITY VENOUS CLINICAL HISTORY: Right wrist swelling. COMPARISON STUDY: No priors.. TECHNIQUE: Real-time, grayscale, and color Doppler sonography of the deep veins of the right upper extremity is performed. Compression and augmentation were utilized. FINDINGS: There is no sonographic evidence of deep venous thrombosis identified in the right upper extremity. The right internal jugular, axillary, and brachial veins are patent and normally compressible. Normal venous waveforms and augmentation are seen within the right subclavian vein. The cephalic and basilic veins are clear. The visualized radial and ulnar veins are patent. IMPRESSION: There is no sonographic evidence of deep venous thrombosis identified in the right upper extremity. Electronically signed by: Umair Whalen M.D. 01/15/2018 9:50 PM ULTRASOUND RIGHT UPPER EXTREMITY NONVASCULAR CLINICAL HISTORY: Right wrist swelling. COMPARISON STUDY: Ultrasound of the right wrist dated 01/12/2018. FINDINGS: Real-time, grayscale, and color flow sonography of the soft tissues of the anterior right wrist is performed at the indicated site of interest. There is dermal thickening with extensive subcutaneous soft tissue edema and simultaneous fluid identified in this area. No organized/drainable fluid collection is clearly seen. The regional vessels appear patent. No foreign body is identified. IMPRESSION: 1. Dermal thickening with subcutaneous edema/fluid is seen at the site of interest. The appearance suggests cellulitis. 2. No organized/drainable fluid collection is identified to indicate abscess. Electronically signed by: Umair Whalen M.D. 01/15/2018 10:13 PM Laboratory Results 01/15/18 20:40 Red Blood Count 4.96, Mean Corpuscular Volume 79.4, Mean Corpuscular Hemoglobin 26.8, Mean Corpuscular Hemoglobin Concent 33.8, Mean Platelet Volume 9.7, Neutrophils (%) (Auto) 58.6, Lymphocytes (%) (Auto) 22.8, Monocytes (%) (Auto) 13.3, Eosinophils (%) (Auto) 4.8, Basophils (%) (Auto) 0.2, Neutrophils # (Auto ) 6.64, Lymphocytes # (Auto) 2.58, Monocytes # (Auto) 1.51, Eosinophils # (Auto ) 0.54, Basophils # (Auto) 0.02 01/15/18 20:40 Test 01/15/18 20:40 White Blood Count 11.32 K/uL (4.8-10.8) Red Blood Count 4.96 M/uL (4.7-6.1) Hemoglobin 13.3 g/dL (14.0-18.0) Hematocrit 39.4 % (42-52) Mean Corpuscular Volume 79.4 fL (80-100) Mean Corpuscular Hemoglobin 26.8 pg (25-34) Mean Corpuscular Hemoglobin Concent 33.8 g/dl (32-36) Platelet Count 250 K/uL (130-400) Mean Platelet Volume 9.7 fL (7.4-10.4) Neutrophils (%) (Auto) 58.6 % Lymphocytes (%) (Auto) 22.8 % Monocytes (%) (Auto) 13.3 % Eosinophils (%) (Auto) 4.8 % Basophils (%) (Auto) 0.2 % Neutrophils # (Auto) 6.64 K/uL (1.4-6.5) Lymphocytes # (Auto) 2.58 K/uL (1.2-3.4) Monocytes # (Auto) 1.51 K/uL (0.11-0.59) Eosinophils # (Auto) 0.54 K/uL (0-0.5) Basophils # (Auto) 0.02 K/uL (0-0.2) RDW Standard Deviation 38.0 fL (36.4-46.3) RDW Coefficient of Variation 13.3 % (11.5-14.5) Immature Granulocyte % (Auto) 0.3 % Immature Granulocyte # (Auto) 0.03 K/uL (0.00-0.02) Prothrombin Time 10.7 SECONDS (9.0-12.0) Prothromb Time International Ratio 1.0 (0.9-1.1) Activated Partial Thromboplast Time 32.2 SECONDS (21.0-31.0) Partial Thromboplastin Ratio 1.2 Anion Gap 6.0 mmol/L (3-11) Est Creatinine Clear Calc Drug Dose 75.1 ml/min Estimated GFR () 79.5 Estimated GFR (Non- 68.6 BUN/Creatinine Ratio 13.6 (10-20) Calcium Level 8.8 mg/dl (8.5-10.1) Laboratory results reviewed by me Medications Administered Medications (Trade) Dose Ordered Sig/Bradley Route Start Time Stop Time Status Last Admin Dose Admin Clindamycin Phosphate 600 mg/ Dextrose 54 ml @ 100 mls/hr ONE ONCE IV 01/15/18 20:15 01/15/18 20:47 DC 01/15/18 20:53 100 MLS/HR ED Course 1953: The patient was evaluated in room B4. A complete history and physical exam was performed. 2220: I reevaluated the patient. Discussed results and discharge instructions: He verbalized understanding and agreement. The patient is ready for discharge. 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 Positive nausea. Negative vomiting, fevers, chills. Differential diagnosis: Etiologies such as cellulitis, abscess, MRSA infection, DVT, necrotizing fasciitis, dermatitis, drug eruption, as well as others were entertained.. Patient was seen and evaluated the bedside. Patient does have a known history of hep C as well as heroin abuse. Patient last used several days ago. Patient does have some pain over his right distal forearm. The patient does have some mild induration and swelling. He is a fair amount of extremity swelling in the hand. Patient is neurovascularly intact. Patient did have blood work completed along with an ultrasound for DVT as well as nonvascular study to look for abscess. Patient was also given clindamycin. Blood cultures were drawn. Patient's superficial nonvascular did not show any evidence of abscess or fluid collection that could be drained. Patient did have blood cultures drawn and the patient does not have an elevated white count. Do not believe the patient is septic and did not does not require further inpatient antibiotics. Patient was told to abstain from using heroin. Patient was told to continue ice compression elevation of the extremity and to return if he had worsening symptoms expanding redness or pain. Patient already was prescribed antibiotics several days ago and the patient was taking these. Patient was given strict follow-up, discharge, and return precautions. All questions were answered. Patient was deemed suitable for outpatient follow-up at this time. Patient agreed with the plan of care and was safely discharged home. Medication Reconcilliation Current Medication List: was personally reviewed by me Blood Pressure Screening Patient's blood pressure: Normal blood pressure Blood pressure disposition: Did not require urgent referral Impression Primary Impression: Cellulitis of wrist Additional Impression: Heroin abuse Scribe Attestation The scribe's documentation has been prepared under my direction and personally reviewed by me in its entirety. I confirm that the note above accurately reflects all work, treatment, procedures, and medical decision making performed by me. Departure Information Dispostion Home / Self-Care Referrals No Doctor, Assigned (PCP) Forms HOME CARE DOCUMENTATION FORM, IMPORTANT VISIT INFORMATION Patient Instructions Abuse Heroin Abuse and Addiction, Addiction Heroin Tx, Cellulitis Dc, ED [facility] Additional Instructions Please return to the emergency department if you have worsening or recurrent symptoms not amenable to at-home treatment. Please call for a follow-up appointment with her primary care physician. Please take your medications as prescribed. If you have other concerns and/or complaints please feel free to also call your primary care physician's office or return the ED for further evaluation, management, and treatment. You may take 800 mg Ibuprofen every 6 hours as needed for pain/fever with food unless told by your physician not to take NSAIDs. You may take tylenol 1000 mg every 6 hours as needed for pain/fever unless told by your physician to not take it or have liver problems. You may take motrin and tylenol separately or at the same time. Take your medications as prescribed. If taking an antibiotic consider taking a probiotic and/or eating yogurt, but at the least, please take with food as it can cause upset stomach. Please continue to take the antibiotics that you are prescribed. Continue the Bactrim and Keflex. You have been examined and treated today on an emergency basis only. This is not a substitute for, or an effort to provide, complete comprehensive medical care. It is impossible to recognize and treat all injuries or illnesses in a single emergency department visit. It is therefore important that you follow up closely with [facility], your PCP, and/or your specialist(s). Call as soon as possible for an appointment. Thank you for your time and consideration. I look forward to speaking with you again soon. Please don't hesitate to call us if you have any questions. Problem Qualifiers
[2018-01-15] MEDS ORDERED: CLINDAMYCIN IV 600 MG in DEXTROSE 5% 50ML 50 ML IV ONE (20:15)
[2018-01-15 20:52] LABS: BASO % 0.2 %; BASO ABS # 0.02 K/uL (0-0.2); EOS % 4.8 %; EOS ABS # 0.54 K/uL (0-0.5); HEMATOCRIT 39.4 % (42-52); HEMOGLOBIN 13.3 g/dL (14.0-18.0); IG# 0.03 K/uL (0.00-0.02); LYMPH % 22.8 %; LYMPH ABS # 2.58 K/uL (1.2-3.4); MEAN CELL VOLUME 79.4 fL (80-100); MEAN CORPUSCULAR HEMOGLOBIN 26.8 pg (25-34); MEAN CORPUSCULAR HGB CONC 33.8 g/dl (32-36); MEAN PLATELET VOLUME 9.7 fL (7.4-10.4); MONO % 13.3 %; MONO ABS # 1.51 K/uL (0.11-0.59); NEUT % 58.6 %; NEUT ABS # 6.64 K/uL (1.4-6.5); PLATELET COUNT 250 K/uL (130-400); RED CELL DISTRIBUTION WIDTH CV 13.3 % (11.5-14.5); WHITE BLOOD COUNT 11.32 K/uL (4.8-10.8)
[2018-01-15 21:07] LABS: PTT PATIENT 32.2 SECONDS (21.0-31.0)
[2018-01-15 21:12] LABS: CALCIUM 8.8 mg/dl (8.5-10.1); CREATININE 1.34 mg/dl (0.60-1.40); POTASSIUM 4.3 mmol/L (3.5-5.1)
[2018-01-15] MEDS ORDERED: SULF800T23 PO (21:22)
[2018-01-15] MEDS ORDERED: CEPH500C PO (21:22)
--- NOTE | 2018-01-15 21:52 | DIAGNOSTIC IMAGING REPORT ---
ULTRASOUND RIGHT UPPER EXTREMITY VENOUS CLINICAL HISTORY: Right wrist swelling. COMPARISON STUDY: No priors.. TECHNIQUE: Real-time, grayscale, and color Doppler sonography of the deep veins of the right upper extremity is performed. Compression and augmentation were utilized. FINDINGS: There is no sonographic evidence of deep venous thrombosis identified in the right upper extremity. The right internal jugular, axillary, and brachial veins are patent and normally compressible. Normal venous waveforms and augmentation are seen within the right subclavian vein. The cephalic and basilic veins are clear. The visualized radial and ulnar veins are patent. IMPRESSION: There is no sonographic evidence of deep venous thrombosis identified in the right upper extremity. Electronically signed by: Umair Whalen M.D. 01/15/2018 9:50 PM Dictated Date/Time: 01/15/2018 9:50 PM
--- NOTE | 2018-01-15 22:14 | DIAGNOSTIC IMAGING REPORT ---
ULTRASOUND RIGHT UPPER EXTREMITY NONVASCULAR CLINICAL HISTORY: Right wrist swelling. COMPARISON STUDY: Ultrasound of the right wrist dated 01/12/2018. FINDINGS: Real-time, grayscale, and color flow sonography of the soft tissues of the anterior right wrist is performed at the indicated site of interest. There is dermal thickening with extensive subcutaneous soft tissue edema and simultaneous fluid identified in this area. No organized/drainable fluid collection is clearly seen. The regional vessels appear patent. No foreign body is identified. IMPRESSION: 1. Dermal thickening with subcutaneous edema/fluid is seen at the site of interest. The appearance suggests cellulitis. 2. No organized/drainable fluid collection is identified to indicate abscess. Electronically signed by: Umair Whalen M.D. 01/15/2018 10:13 PM Dictated Date/Time: 01/15/2018 10:11 PM
[2018-01-15 22:55] VITALS: BP 130/74; PULSE 75; O2SAT 98
== END 2018-01-15 23:01 | disposition home or self-care (01) ==
LOC: C.EDB 19:33
DX: L03.113 Cellulitis of right upper limb (principal); F11.10 Opioid abuse, uncomplicated; Z86.19 Personal history of other infectious and parasitic diseases; F17.200 Nicotine dependence, unspecified, uncomplicated; Z91.048 Other nonmedicinal substance allergy status; Z88.5 Allergy status to narcotic agent

== ENCOUNTER 2018-04-19 22:39 | Emergency (ER) | payer OTHER ==
[~2018-04-19] VITALS: Ht 172.7 cm; Wt 82.0 kg
[2018-04-19 22:54] VITALS: TEMP 36.7; Ht 172.7 cm; Wt 82.0 kg
[2018-04-20] LABS: BASO % 0.4 %; BASO ABS # 0.03 K/uL (0-0.2); EOS % 5.3 %; EOS ABS # 0.43 K/uL (0-0.5); HEMATOCRIT 41.3 % (42-52); HEMOGLOBIN 13.7 g/dL (14.0-18.0); IG# 0.02 K/uL (0.00-0.02); LYMPH % 31.6 %; LYMPH ABS # 2.58 K/uL (1.2-3.4); MEAN CORPUSCULAR HEMOGLOBIN 26.9 pg (25-34); MEAN CORPUSCULAR HGB CONC 33.2 g/dl (32-36); MONO % 12.7 %; MONO ABS # 1.04 K/uL (0.11-0.59); NEUT % 49.8 %; NEUT ABS # 4.07 K/uL (1.4-6.5); PLATELET COUNT 290 K/uL (130-400); RED CELL DISTRIBUTION WIDTH CV 13.6 % (11.5-14.5); RED CELL DISTRIBUTION WIDTH SD 40.6 fL (36.4-46.3); WHITE BLOOD COUNT 8.17 K/uL (4.8-10.8)
--- NOTE | 2018-04-20 00:03 | EMERGENCY ROOM VISIT NOTE ---
History Report prepared by Asia: Faustina Kirby Under the Supervision of: Dr. Diego Hawkins D.O. First contact with patient: 22:49 Chief Complaint: OVERDOSE (INTENTIONAL) Stated Complaint: Heroin Overdose, coming for Medical Clearance History of Present Illness The patient is a 33 year old male who presents to the Emergency Room with complaints of an episode of an overdose occurring 3 hours ago. The patient states that he has been increasingly depressed the past 3 years due to his cheating on him. He states that he then became addicted to drugs after having Percocet following a bad accident at work where he fell 27 feet, broke his back , and lost some teeth. He states that he now uses heroin. He reports that he normally uses 15 bags, which is equivalent to 1 gram, every other day. He states that he last used 3 hours ago and injected 6 bags at that time. He notes that he had a total of 15 bags over 3 hours. The patient states that he was clean for 30 days when coming out of [employer], but started using intermittently during the day and became "hooked" again. The patient states that he "doesn't care" if he dies. He states that he has had thoughts of killing himself, but has never had a set plan. He states that he thinks if he would he may shoot himself. He states that he would like to come in for help. The patient denies anything acutely bothering him. Source of History: patient Onset: 3 hours ago Position: other (generalized) Quality: other (overdose) Timing: other (episode) Note: The patient complains of suicidal ideations. The patient denies having a plan and anything acutely bothering him. Review of Systems See HPI for pertinent positives & negatives. A total of 10 systems reviewed and were otherwise negative. Past Medical & Surgical Medical Problems: (1) ANXIETY STATE NOS (2) ASTHMA, UNSPECIFIED, W (ACUTE) EXACERBATION (3) BACKACHE NOS (4) Bronchitis (5) CHRONIC SINUSITIS NOS (6) FAM HX-CARDIOVAS DIS NEC (7) FAM HX-DIABETES MELLITUS (8) FAM HX-ISCHEM HEART DIS (9) FAMILY HISTORY OF OTHER CARDIOVASCULAR DISEASES (10) History of chronic back pain (11) Pneumonia (12) VASECTOMY STATUS Family History Cancer Diabetes mellitus Heart disease Hypertension Lung disease Social History Smoking Status: Current Every Day Smoker Alcohol Use: occasionally Drug Use: heroin, other Marital Status: Housing Status: lives alone Occupation Status: employed Current/Historical Medications No Active Prescriptions or Reported Meds Allergies Coded Allergies: Animal Dander (Verified Allergy, Unknown, WATERY EYES, RUNNY NOSE, SNEEZING, 04/19/18) Tramadol (Verified Allergy, Unknown, SEIZURE, 04/19/18) Physical Exam Vital Signs Date Time Temp Pulse Resp B/P (MAP) Pulse Ox O2 Delivery O2 Flow Rate FiO2 04/19/18 22:55 66 04/19/18 22:54 36.7 80 20 144/78 98 Room Air Physical Exam GENERAL: Sitting up in bed, alert, well appearing, well nourished, no distress, non-toxic EYE EXAM: normal conjunctiva. OROPHARYNX: no exudate, no erythema, lips, buccal mucosa, and tongue normal and mucous membranes are moist NECK: supple, no nuchal rigidity, no adenopathy, non-tender LUNGS: Clear to auscultation. Normal chest wall mechanics HEART: no murmurs, S1 normal and S2 normal ABDOMEN: abdomen soft, non-tender, normo-active bowel sounds, no masses, no rebound or guarding. BACK: Back is symmetrical on inspection and there is no deformity, no midline tenderness, no CVA tenderness. SKIN: no rashes and no bruising UPPER EXTREMITIES: upper extremities are grossly normal. LOWER EXTREMITIES: No pitting edema. NEURO EXAM: Normal sensorium, cranial nerves II-XII grossly intact, normal speech, no gross weakness of arms, no gross weakness of legs. PSYCH: Admits to suicidal ideation with the thought of shooting himself. Medical Decision & Procedures Laboratory Results 04/19/18 23:48 Red Blood Count 5.10, Mean Corpuscular Volume 81.0, Mean Corpuscular Hemoglobin 26.9, Mean Corpuscular Hemoglobin Concent 33.2, Mean Platelet Volume 10.0, Neutrophils (%) (Auto) 49.8, Lymphocytes (%) (Auto) 31.6, Monocytes (%) (Auto) 12.7, Eosinophils (%) (Auto) 5.3, Basophils (%) (Auto) 0.4, Neutrophils # (Auto ) 4.07, Lymphocytes # (Auto) 2.58, Monocytes # (Auto) 1.04, Eosinophils # (Auto ) 0.43, Basophils # (Auto) 0.03 04/19/18 23:48 Test 04/19/18 22:50 04/19/18 23:48 Urine Color YELLOW Urine Appearance CLEAR (CLEAR) Urine pH 5.0 (4.5-7.5) Urine Specific Goessel 1.027 (1.000-1.030) Urine Protein NEG (NEG) Urine Glucose (UA) NEG (NEG) Urine Ketones NEG (NEG) Urine Occult Blood NEG (NEG) Urine Nitrite NEG (NEG) Urine Bilirubin NEG (NEG) Urine Urobilinogen NEG (NEG) Urine Leukocyte Esterase NEG (NEG) Urine Opiates Screen POS (NEG) Urine Methadone, Qualitative NEG (NEG) Urine Barbiturates NEG (NEG) Urine Phencyclidine (PCP) Level NEG (NEG) Ur Amphetamine/Methamphetamine NEG (NEG) MDMA (Ecstasy) Screen NEG (NEG) Urine Benzodiazepines Screen NEG (NEG) Urine Cocaine Metabolite NEG (NEG) Urine Marijuana (THC) NEG (NEG) White Blood Count 8.17 K/uL (4.8-10.8) Red Blood Count 5.10 M/uL (4.7-6.1) Hemoglobin 13.7 g/dL (14.0-18.0) Hematocrit 41.3 % (42-52) Mean Corpuscular Volume 81.0 fL (80-100) Mean Corpuscular Hemoglobin 26.9 pg (25-34) Mean Corpuscular Hemoglobin Concent 33.2 g/dl (32-36) Platelet Count 290 K/uL (130-400) Mean Platelet Volume 10.0 fL (7.4-10.4) Neutrophils (%) (Auto) 49.8 % Lymphocytes (%) (Auto) 31.6 % Monocytes (%) (Auto) 12.7 % Eosinophils (%) (Auto) 5.3 % Basophils (%) (Auto) 0.4 % Neutrophils # (Auto) 4.07 K/uL (1.4-6.5) Lymphocytes # (Auto) 2.58 K/uL (1.2-3.4) Monocytes # (Auto) 1.04 K/uL (0.11-0.59) Eosinophils # (Auto) 0.43 K/uL (0-0.5) Basophils # (Auto) 0.03 K/uL (0-0.2) RDW Standard Deviation 40.6 fL (36.4-46.3) RDW Coefficient of Variation 13.6 % (11.5-14.5) Immature Granulocyte % (Auto) 0.2 % Immature Granulocyte # (Auto) 0.02 K/uL (0.00-0.02) Anion Gap 8.0 mmol/L (3-11) Est Creatinine Clear Calc Drug Dose 96.8 ml/min Estimated GFR () 108.6 Estimated GFR (Non- 93.7 BUN/Creatinine Ratio 13.7 (10-20) Calcium Level 8.2 mg/dl (8.5-10.1) Total Bilirubin 0.3 mg/dl (0.2-1) Direct Bilirubin < 0.1 mg/dl (0-0.2) Aspartate Amino Transf (AST/SGOT) 37 U/L (15-37) Alanine Aminotransferase (ALT/SGPT) 58 U/L (12-78) Alkaline Phosphatase 61 U/L (45-117) Total Protein 7.4 gm/dl (6.4-8.2) Albumin 3.5 gm/dl (3.4-5.0) Thyroid Stimulating Hormone (TSH) 2.820 uIu/ml (0.300-4.500) Ethyl Alcohol mg/dL < 3.0 mg/dl (0-3) Laboratory results per my review. ED Course ED COURSE: Vital signs were reviewed and showed situational hypertension. The patients medical record was reviewed The above diagnostic studies were performed and reviewed. ED treatments and interventions as stated above. 2250: The patient was evaluated in room A3. A complete history and physical examination was performed. 2343: I reevaluated the patient at this time and he is doing okay. 0100: Upon reevaluation, the patient is medically stable at this time. I discussed my findings with the patient and he understands and agrees with the treatment plan. Based on the patients age, coexisting illnesses, exam and lab findings the decision to treat as an inpatient was made. The patient remained stable while under my care. The patient will be evaluated for further management. 0130: I signed the patient out to Dr. Pandey at change of shift. Medical Decision Differential diagnosis: Etiologies such as mood disorder, infection, hypoglycemia, electrolyte abnormalities, cardiac sources, intracerebral event, toxicologic, neurologic, as well as others were entertained. Patient is a 33-year-old male who presents the ER for depression and suicidal thoughts. He notes he has been depressed over the past 3 years. He works as a [employer] worker and was recently discharged from [facility]. He does use heroin. He uses about 1 g every other day. He does inject. He has no other physical complaints at this. He notes he used 1 g today between the hours of 5 PM and 8 PM. There is no other complaints at this time. Patient admits to suicidal thoughts notes that if he were to kill himself he would shoot himself. He does want to come in for help. Is agreeable to come in on the 201. Patient was monitored in the ER for over 2 hours. CBC along with BMP, LFTs and TSH was unremarkable. Toxicology was positive for opiates. Alcohol negative. UA was negative. Patient resting comfortably in the ER. He was evaluated by López from her psychiatric lpn care manager team. Will need placement on 201. Pt was signed out to Dr. Pandey at the change of shift. Medication Reconcilliation Current Medication List: was personally reviewed by me Blood Pressure Screening Patient's blood pressure: Elevated blood pressure Blood pressure disposition: Elevated BP felt to be situational Impression Primary Impression: Suicidal ideation Additional Impression: Heroin abuse Scribe Attestation The scribe's documentation has been prepared under my direction and personally reviewed by me in its entirety. I confirm that the note above accurately reflects all work, treatment, procedures, and medical decision making performed by me. Departure Information Dispostion Still a Patient Prescriptions No Active Prescriptions or Reported Meds Referrals No Doctor, Assigned (PCP) Patient Instructions [facility] Problem Qualifiers
[2018-04-20 00:33] LABS: ALBUMIN 3.5 gm/dl (3.4-5.0); ALKALINE PHOSPHATASE 61 U/L (45-117); ALT/SGPT 58 U/L (12-78); AST/SGOT 37 U/L (15-37); BLOOD UREA NITROGEN 14 mg/dl (7-18); CALCIUM 8.2 mg/dl (8.5-10.1); CARBON DIOXIDE 28 mmol/L (21-32); CREATININE 1.03 mg/dl (0.60-1.40); GLUCOSE 115 mg/dl (70-99); POTASSIUM 4.2 mmol/L (3.5-5.1); SODIUM 140 mmol/L (136-145); TOTAL PROTEIN 7.4 gm/dl (6.4-8.2)
--- NOTE | 2018-04-20 03:42 | EMERGENCY ROOM VISIT NOTE ---
ED Visit Note First contact with patient: 03:32 This case was signed out to me at change of shift awaiting bed placement. The patient is a voluntary admission for psychiatric care. [facility].
[2018-04-20 05:08] VITALS: BP 101/65; PULSE 60; O2SAT 99
== END 2018-04-20 05:10 | disposition short-term general hospital (02) ==
LOC: EDBD 22:39 → C.EDA 22:41
DX: R45.851 Suicidal ideations (principal); T40.1X2A Poisoning by heroin, intentional self-harm, initial encounter; X83.8XXA Intentional self-harm by other specified means, initial encounter; F11.10 Opioid abuse, uncomplicated; F17.200 Nicotine dependence, unspecified, uncomplicated; J45.909 Unspecified asthma, uncomplicated; Z88.8 Allergy status to other drugs, medicaments and biological substances; Z91.09 Other allergy status, other than to drugs and biological substances

== ENCOUNTER 2022-06-09 20:33 | Observation (INO) ==
[2022-06-09] MEDS ORDERED: diphenhydrAMINE 50 MG/ML VIAL IV STA (21:30)
[2022-06-09] MEDS ORDERED: methylPREDNISolone 125 MG/2 ML VIAL IV STA (21:30)
[2022-06-09] MEDS ORDERED: SODIUM CHLORIDE 0.9% 1000ML 500 ML IV ONE (21:31)
--- NOTE | 2022-06-09 21:32 | Emergency Department Note ---
Impression & Plan Cellulitis of scrotum ADMIT ED Provider Note HPI: The patient is a 37-year-old male who presents the emergency department chief complaint of itching and penile and scrotal swelling that began earlier this afternoon. Patient states over the past several days he has had some symptoms of itching in his right upper extremity and any of his eyes, he states that earlier today at around 2 PM he began having some itching and irritation in his scrotum and penis. He developed some swelling of both his penis and his scrotum, scrotum became red and therefore he came to the emergency department for further evaluation. On arrival the patient is hemodynamically stable, he is afebrile, he is in no acute distress on my initial evaluation. ROS: -Skin: Rash -: Scrotal swelling/edema *10 point review systems was conducted and is otherwise negative unless stated above *Outpatient medications and allergy history reviewed PE: General: Alert HEENT: Normocephalic, trachea midline Eyes: Extraocular eye movement is intact, no scleral erythema Pulmonary: Clear to auscultation bilaterally, no wheezing Cardio: Regular rate and rhythm GI: Abdomen is soft, nontender : No suprapubic tenderness, scrotal and penile findings as noted below MSK: No evidence of trauma or malformation of the extremities, no edema Skin: Mildly erythematous rash below each orbit and at the right antecubital fossa area without any blister formation or skin peeling, there is erythema and edema of the scrotum and penis without any lesions or blister formation, no evidence of paraphimosis Neuro: Alert, no focal deficits 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 There is no soft tissue gas. The soft tissues of the scrotum or not well characterized by CT. There is a somewhat rounded area in the midline anterior scrotum measuring 2.9 x 2.6 x 4.4 cm. It is difficult to exclude a small focal fluid collection in the anterior scrotal wall. Consider further evaluation with sonography. There are mildly prominent bilateral inguinal lymph nodes. No abnormal fluid is seen in the pelvis. Radiologist: Tony Cifuentes MD Interventions provided in ED: -IV vancomycin, IV Zosyn, IV Solu-Medrol, IV Benadryl, IV fluids Medical Decision Making: Patient presented to the emergency department with rash to his bilateral orbits, right upper extremity, and then developed acutely a rash and some itching in his scrotum and penis today. He does have penile edema and scrotal edema on arrival here to the ED. IV was established, lab work obtained, blood work shows evidence of leukocytosis, CT imaging of the abdomen pelvis was ordered that shows diffuse soft tissue swelling of the scrotal wall and penis. No evidence of any soft tissue gas formation. Blood cultures were drawn in the ED and the patient was started prophylactically on IV vancomycin and IV Zosyn over concern for scrotal cellulitis. He was treated with IV steroids and IV Benadryl for his itchy rash to this area as well as to his right upper extremity and bilateral orbits. This appears to be somewhat allergic in nature but I am concerned for possible superimposed bacterial infection given the findings on the patient's scrotum and penis. Ultrasound imaging of the scrotum was obtained that does not show any evidence of abscess or torsion. I discussed the above findings with on-call urology, Dr. Velez, who is in agreement for consultation and states the patient should be admitted and started on IV antibiotics. Patient was started on IV antibiotics and blood cultures were drawn[facility] following my discussion with Dr. Cruz and the patient was admitted in stable condition for further care. Diagnosis: 1. Scrotal cellulitis 2. Penile and scrotal edema, acute 3. Rash, nonspecific 4. Leukocytosis Disposition: Admission Faustino Sandoval DO Emergency Medicine Past Med/Surg History Medical History (Updated 06/10/22 @ 13:41 by Faustino Sandoval DO) Asthma Chronic pain Depression Heroin abuse History of chronic back pain Mood disorder Pneumonia (05/26/13) Surgical History No significant past surgical history Family History Other No significant family history Social History Smoking Status: Never smoker Do You Dip or Chew Tobacco: Yes; Hx Alcohol Use: Yes Alcohol type: hard liquor Hx Substance Use: Yes Last Used Substance: Just Prior to Arrival Last Used Substance Other:: Friday Preferred Language: Chinese Communication Ability: Effective 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 Beliefs That Will Affect Care: None Current Living Situation: Alone current occupational status: employed Other Information That Helps Us Care for You: No Feels Safe at Home: Yes Safety Concerns: Feels Safe At This Time Assistive Devices: None and Nebulizer Assistive Devices Comment: does not use nebulizer Allergies Allergies Allergy/AdvReac Type Severity Reaction Status Date / Time tramadol Allergy Severe SEIZURE Verified 06/09/22 23:09 animal dander Allergy Intermediate WATERY Verified 06/09/22 23:09 EYES, RUNNY NOSE, SNEEZING Home Meds Home Medications Medication Instructions Recorded Confirmed No Known Home Medications 06/09/22 06/09/22 Results & Data (ED) Vital Signs Vital Signs - 24 hr 06/09/22 20:45 06/09/22 21:07 06/09/22 22:03 Temperature 36.8 C Temperature Source Temporal Artery Scan Pulse Rate 84 Pulse Rate [Left Apical] Pulse Rhythm Regular Pulse Rhythm [Left Apical] Pulse Strength Normal Pulse Strength [Left Apical] Respiratory Rate 18 Respiratory Effort / Characteristics Non-Labored Spontaneous Non-Labored Respiratory Depth Normal Normal Respiratory Pattern Regular Regular Blood Pressure 126/70 Blood Pressure [Left Arm] Blood Pressure Mean 88 Blood Pressure Mean [Left Arm] Blood Pressure Position Sitting Pulse Oximetry 95 94 Oxygen Delivery Method Room Air Room Air Room Air Sepsis Recent Fever Within 48 Hours No Sepsis New/Unexplained Change in Mental Status N/A Sepsis Action Taken by Nursing No Action Required 06/09/22 22:04 06/09/22 22:52 06/10/22 00:47 Temperature Temperature Source Pulse Rate Pulse Rate [Left Apical] 60 68 60 Pulse Rhythm Pulse Rhythm [Left Apical] Regular Regular Pulse Strength Pulse Strength [Left Apical] Normal Normal Respiratory Rate 16 16 16 Respiratory Effort / Characteristics Non-Labored Spontaneous Non-Labored Spontaneous Respiratory Depth Normal Normal Respiratory Pattern Blood Pressure Blood Pressure [Left Arm] 124/74 122/75 126/81 Blood Pressure Mean Blood Pressure Mean [Left Arm] 90 90 96 Blood Pressure Position Pulse Oximetry 94 97 96 Oxygen Delivery Method Room Air Room Air Room Air Sepsis Recent Fever Within 48 Hours Sepsis New/Unexplained Change in Mental Status Sepsis Action Taken by Nursing Laboratory Data Result diagrams: 06/10/22 08:41 06/10/22 08:41 Lab Results 06/09/22 06/09/22 06/09/22 Range/Units 21:45 21:45 21:45 WBC 17.68 H (4.8-10.8) K/ul RBC 4.39 L (4.63-6.08) M/uL Hgb 11.6 L (14.0-18.0) g/dl Hct 35.3 L (40.1-51.0) % MCV 80.4 (80.0-100.0) fL MCH 26.4 (25.0-34.0) pg MCHC 32.9 (32.0-36.0) g/dL RDW Std Deviation 40.6 (36.4-46.3) fL RDW Coeff of Femi 13.8 (11.5-14.5) % Plt Count 277 (130-400) K/uL MPV 10.8 (9.4-12.4) fL Immature Gran % (Auto) 0.5 % Neut % (Auto) 71.1 % Lymph % (Auto) 14.9 % Houghton % (Auto) 8.8 % Eos % (Auto) 4.4 % Baso % (Auto) 0.3 % Neut # (Auto) 12.58 H (1.4-6.5) K/uL Lymph # (Auto) 2.63 (1.2-3.4) K/uL Houghton # (Auto) 1.55 H (0.24-0.82) K/uL Eos # (Auto) 0.78 H (0-0.50) K/uL Baso # (Auto) 0.05 (0-0.2) K/uL Immature Gran # (Auto) 0.09 H (0.00-0.02) K/uL Sodium 136 (136-145) mmol/L Potassium 4.0 (3.5-5.1) mmol/L Chloride 103 (98-107) mmol/L Carbon Dioxide 27 (21-32) mmol/L Anion Gap 6 (3-11) BUN 20 (6-23) mg/dl Creatinine 1.45 H (0.6-1.4) mg/dl Est Cr Clr Drug Dosing 68.4 ml/min Est GFR ( Amer) 69.8 ml/min Est GFR (Non-Af Amer) 60.2 ml/min BUN/Creatinine Ratio 13.8 (10-20) Glucose 96 (70-99(Fasting)) mg/dl Calcium 8.8 (8.5-10.1) mg/dl Magnesium 1.8 (1.7-2.4) mg/dl Total Bilirubin 0.4 (0.2-1.0) mg/dl AST 21 (13-39) U/L ALT 20 (7-52) U/L Alkaline Phosphatase 61 (34-104) U/L Total Protein 6.6 (6.0-8.3) gm/dl Albumin 3.5 (3.4-5.0) gm/dl Globulin 3.1 (2.5-4.0) gm/dl Albumin/Globulin Ratio 1.1 (0.9-2) Lipase 11 (11-82) U/L Vitamin B12 (180-914) pg/ml Folate (>5.38) ng/ml TSH (0.300-4.500) uIu/ml Free T4 (0.61-1.60) ng/dl Urine Color Urine Appearance (Clear) Urine pH (4.5-7.5) Ur Specific Pauline (1.000-1.030) Urine Protein (Negative) Urine Glucose (UA) (Negative) Urine Ketones (Negative) Urine Blood (Negative) Urine Nitrite (Negative) Urine Bilirubin (Negative) Urine Urobilinogen (Negative) Ur Leukocyte Esterase (Negative) SARS-CoV-2, RNA, NAAT (NEGATIVE) 06/09/22 06/09/22 06/09/22 Range/Units 21:45 21:45 22:47 WBC (4.8-10.8) K/ul RBC (4.63-6.08) M/uL Hgb (14.0-18.0) g/dl Hct (40.1-51.0) % MCV (80.0-100.0) fL MCH (25.0-34.0) pg MCHC (32.0-36.0) g/dL RDW Std Deviation (36.4-46.3) fL RDW Coeff of Femi (11.5-14.5) % Plt Count (130-400) K/uL MPV (9.4-12.4) fL Immature Gran % (Auto) % Neut % (Auto) % Lymph % (Auto) % Houghton % (Auto) % Eos % (Auto) % Baso % (Auto) % Neut # (Auto) (1.4-6.5) K/uL Lymph # (Auto) (1.2-3.4) K/uL Houghton # (Auto) (0.24-0.82) K/uL Eos # (Auto) (0-0.50) K/uL Baso # (Auto) (0-0.2) K/uL Immature Gran # (Auto) (0.00-0.02) K/uL Sodium (136-145) mmol/L Potassium (3.5-5.1) mmol/L Chloride (98-107) mmol/L Carbon Dioxide (21-32) mmol/L Anion Gap (3-11) BUN (6-23) mg/dl Creatinine (0.6-1.4) mg/dl Est Cr Clr Drug Dosing ml/min Est GFR ( Amer) ml/min Est GFR (Non-Af Amer) ml/min BUN/Creatinine Ratio (10-20) Glucose (70-99(Fasting)) mg/dl Calcium (8.5-10.1) mg/dl Magnesium (1.7-2.4) mg/dl Total Bilirubin (0.2-1.0) mg/dl AST (13-39) U/L ALT (7-52) U/L Alkaline Phosphatase (34-104) U/L Total Protein (6.0-8.3) gm/dl Albumin (3.4-5.0) gm/dl Globulin (2.5-4.0) gm/dl Albumin/Globulin Ratio (0.9-2) Lipase (11-82) U/L Vitamin B12 464 (180-914) pg/ml Folate 9.67 (>5.38) ng/ml TSH 7.378 H (0.300-4.500) uIu/ml Free T4 0.85 (0.61-1.60) ng/dl Urine Color Dark Yellow Urine Appearance Clear (Clear) Urine pH 5.0 (4.5-7.5) Ur Specific Pauline 1.030 (1.000-1.030) Urine Protein Negative (Negative) Urine Glucose (UA) Negative (Negative) Urine Ketones Trace H (Negative) Urine Blood Negative (Negative) Urine Nitrite Negative (Negative) Urine Bilirubin Negative (Negative) Urine Urobilinogen Negative (Negative) Ur Leukocyte Esterase Negative (Negative) SARS-CoV-2, RNA, NAAT (NEGATIVE) 06/10/22 Range/Units 00:55 WBC (4.8-10.8) K/ul RBC (4.63-6.08) M/uL Hgb (14.0-18.0) g/dl Hct (40.1-51.0) % MCV (80.0-100.0) fL MCH (25.0-34.0) pg MCHC (32.0-36.0) g/dL RDW Std Deviation (36.4-46.3) fL RDW Coeff of Femi (11.5-14.5) % Plt Count (130-400) K/uL MPV (9.4-12.4) fL Immature Gran % (Auto) % Neut % (Auto) % Lymph % (Auto) % H[place] % (Auto) % Eos % (Auto) % Baso % (Auto) % Neut # (Auto) (1.4-6.5) K/uL Lymph # (Auto) (1.2-3.4) K/uL [place]oughton # (Auto) (0.24-0.82) K/uL Eos # (Auto) (0-0.50) K/uL Baso # (Auto) (0-0.2) K/uL Immature Gran # (Auto) (0.00-0.02) K/uL Sodium (136-145) mmol/L Potassium (3.5-5.1) mmol/L Chloride (98-107) mmol/L Carbon Dioxide (21-32) mmol/L Anion Gap (3-11) BUN (6-23) mg/dl Creatinine (0.6-1.4) mg/dl Est Cr Clr Drug Dosing ml/min Est GFR ( Amer) ml/min Est GFR (Non-Af Amer) ml/min BUN/Creatinine Ratio (10-20) Glucose (70-99(Fasting)) mg/dl Calcium (8.5-10.1) mg/dl Magnesium (1.7-2.4) mg/dl Total Bilirubin (0.2-1.0) mg/dl AST (13-39) U/L ALT (7-52) U/L Alkaline Phosphatase (34-104) U/L Total Protein (6.0-8.3) gm/dl Albumin (3.4-5.0) gm/dl Globulin (2.5-4.0) gm/dl Albumin/Globulin Ratio (0.9-2) Lipase (11-82) U/L Vitamin B12 (180-914) pg/ml Folate (>5.38) ng/ml TSH (0.300-4.500) uIu/ml Free T4 (0.61-1.60) ng/dl Urine Color Urine Appearance (Clear) Urine pH (4.5-7.5) Ur Specific Pauline (1.000-1.030) Urine Protein (Negative) Urine Glucose (UA) (Negative) Urine Ketones (Negative) Urine Blood (Negative) Urine Nitrite (Negative) Urine Bilirubin (Negative) Urine Urobilinogen (Negative) Ur Leukocyte Esterase (Negative) SARS-CoV-2, RNA, NAAT NEGATIVE (NEGATIVE) Administered Medications Enoxaparin Sodium (Enoxaparin Inj 40 Mg/0.4 Ml Syr) 40 mg SQ QAM NEGRITA Stop: 07/10/22 08:59 Last Admin: 06/10/22 08:44 Dose: 40 mg Documented By: SANDER Piperacillin Sod/Tazobactam (Sod 3.375 gm/ Dextrose) 115 mls @ 28.75 mls/hr IV Q8H NEGRITA; Protocol Stop: 06/17/22 05:59 Last Infusion: 06/10/22 11:02 Dose: 0 mls/hr Documented By: Admin: 06/10/22 06:32 Dose: 28.8 mls/hr Documented By: MANUELA Loratadine (Loratadine 10 Mg Tab) 10 mg PO QAM NEGRITA Stop: 07/10/22 08:59 Last Admin: 06/10/22 08:44 Dose: 10 mg Documented By: SANDER Discontinued Medications Diphenhydramine HCl (Diphenhydramine 50 Mg/Ml Vial) 50 mg IV NOW STA Stop: 06/09/22 21:31 Last Admin: 06/09/22 21:54 Dose: 50 mg Documented By: ERIN Sodium Chloride (Nss 1000ml) 500 mls @ 999 mls/hr IV .Q31M ONE Stop: 06/09/22 22:01 Last Infusion: 06/09/22 22:51 Dose: 0 mls/hr Documented By: Admin: 06/09/22 21:54 Dose: 999 mls/hr Documented By: ERIN Piperacillin Sod/Tazobactam Sod (Zosyn) 4.5 gm in 120 mls @ 240 mls/hr IV NOW ONE Stop: 06/10/22 00:19 Last Admin: 06/10/22 00:49 Dose: Not Given Documented By: ROSA Vancomycin HCl 1,750 mg/ (Sodium Chloride) 535 mls @ 200 mls/hr IV NOW ONE Stop: 06/10/22 02:42 Last Admin: 06/10/22 01:30 Dose: Not Given Documented By: ROSA Piperacillin Sod/Tazobactam Sod (Zosyn) 4.5 gm in 120 mls @ 240 mls/hr IV NOW ONE Stop: 06/10/22 00:31 Last Infusion: 06/10/22 01:27 Dose: 0 mls/hr Documented By: Admin: 06/10/22 00:47 Dose: 240 mls/hr Documented By: ROSA Doxycycline Hyclate 100 mg/ (Dextrose) 110 mls @ 50 mls/hr IV NOW STA Stop: 06/10/22 03:38 Last Infusion: 06/10/22 03:45 Dose: 0 mls/hr Documented By: Admin: 06/10/22 01:33 Dose: 50 mls/hr Documented By: ROSA Sodium Chloride (Nss 1000ml) 1,000 mls @ 100 mls/hr IV .Q10H ONE Stop: 06/10/22 11:54 Last Admin: 06/10/22 03:46 Dose: 100 mls/hr Documented By: MANUELA Ioversol (Ioversol 350 Mg 100ml Prefilled Syringe) 93 ml IV ONCE ONE Stop: 06/09/22 22:55 Last Admin: 06/09/22 22:54 Dose: 93 ml Documented By: BRIAN Methylprednisolone (Methylprednisolone 125 Mg/2 Ml Vial) 125 mg IV NOW STA Stop: 06/09/22 21:31 Last Admin: 06/09/22 21:54 Dose: 125 mg Documented By: ERIN Imaging Data Radiologist's Impression: Pelvis CT 06/09/22 21:29 CT pelvis w/IV con only HISTORY: scotal and penile swelling/edema TECHNIQUE: Multiaxial CT images of the pelvis are performed following the intravenous administration of 93 cc of Optiray 300 and reformatted in the sagittal and coronal plane. COMPARISON STUDY: Abdomen and pelvis CT 11/18/2018. FINDINGS: Diffuse subcutaneous edema within the scrotum and penis. No areas of soft tissue gas identified. No loculated fluid collections to suggest an abscess. Postoperative changes consistent with a prior vasectomy. Mildly enlarged bilateral inguinal lymph nodes which are likely reactive. The prostate gland is normal in size. The bladder is unremarkable. No pelvic free fluid. The visualized loops of bowel show no wall thickening or obstruction. IMPRESSION: 1. Diffuse subcutaneous edema within the scrotum and penis. No areas of soft tissue gas or abscess identified. 2. Mildly enlarged bilateral inguinal lymph nodes which are likely reactive. ACT 112: Negative or not required by law. Electronically signed by: Mann Bonilla M.D. 06/10/2022 7:48 AM Scrotum Ultrasound 06/09/22 23:36 TESTICULAR ULTRASOUND HISTORY: Scrotal swelling. swelling COMPARISON: Abdomen and pelvis CT 06/09/2022. FINDINGS: Right testis: 5.0 x 1.9 x 2.8 cm. There are no intratesticular masses. Questionable slight increased color flow and comparison to the left. No hydrocele. The epididymis is unremarkable. Left testis: 4.4 x 1.7 x 2.8 cm. There are no intratesticular masses. Normal color flow. No hydrocele. The epididymis is unremarkable. Miscellaneous: There is diffuse scrotal subcutaneous edema. No loculated fluid collections to suggest an abscess. IMPRESSION: 1. Diffuse scrotal subcutaneous edema. No loculated fluid collections to suggest an abscess. 2. Questionable slight increased color flow within the right testis. This could represent a developing orchitis. ACT 112: Negative or not required by law. Electronically signed by: Mann Bonilla M.D. 06/10/2022 8:06 AM Chest X-Ray 06/10/22 01:07 XR chest 1V portable HISTORY: 37 years-old Male renal failure acute renal failure COMPARISON: Chest radiograph 12/23/2020 TECHNIQUE: AP view of the chest FINDINGS: Cardiomediastinal and hilar silhouettes are within normal limits. No pneumothorax, pleural effusion, airspace consolidation or overt pulmonary edema. The bones of the chest appear grossly intact. IMPRESSION: No acute process. ACT 112: Negative or not required by law. The above report was generated using voice recognition software. It may contain grammatical, syntax or spelling errors. Electronically signed by: Harris Martinez M.D. 06/10/2022 9:04 AM Discharge Plan Visit Data Chief Complaint: Penis Pain Stated Complaint: EYE, ARM, PENIS SWELLING ED Provider: Faustino Sandoval Discharge Problem: Cellulitis of scrotum Patient Disposition: Admitted As Inpatient Discharge Instructions Interventions: ED Discharge Assessment Last Done: 06/10/22 02:35
[2022-06-09 21:59] LABS: Basophils # (auto) 0.05 K/uL (0-0.2); Basophils % (auto) 0.3 %; Eosinophils # (auto) 0.78 K/uL (0-0.50); Eosinophils % (auto) 4.4 %; Hematocrit (blood only) 35.3 % (40.1-51.0); Hemoglobin 11.6 g/dl (14.0-18.0); Immature Granulocytes # (auto) 0.09 K/uL (0.00-0.02); Immature Granulocytes % (auto) 0.5 %; Lymphocytes # (auto) 2.63 K/uL (1.2-3.4); Lymphocytes % (auto) 14.9 %; Mean Corpuscular Hemoglobin 26.4 pg (25.0-34.0); Mean Corpuscular Hgb Conc 32.9 g/dL (32.0-36.0); Mean Corpuscular Volume 80.4 fL (80.0-100.0); Mean Platelet Volume 10.8 fL (9.4-12.4); Monocytes # (auto) 1.55 K/uL (0.24-0.82); Monocytes % (auto) 8.8 %; Neutrophils # (auto) 12.58 K/uL (1.4-6.5); Neutrophils % (auto) 71.1 %; Platelet Count 277 K/uL (130-400); RDW Coefficient of Variation 13.8 % (11.5-14.5); RDW Standard Deviation 40.6 fL (36.4-46.3); Red Blood Count 4.39 M/uL (4.63-6.08); White Blood Count 17.68 K/ul (4.8-10.8)
[2022-06-09 22:17] LABS: Albumin Globulin Ratio 1.1 (0.9-2); Albumin Level 3.5 gm/dl (3.4-5.0); BUN Creatinine Ratio 13.8 (10-20); Bilirubin,Total 0.4 mg/dl (0.2-1.0); Calcium 8.8 mg/dl (8.5-10.1); Creatinine Clr Calc Pharmacy 68.4 ml/min; Est GFR (African American) 69.8 ml/min; Est GFR (Non-African American) 60.2 ml/min; Globulin 3.1 gm/dl (2.5-4.0); Total Protein 6.6 gm/dl (6.0-8.3)
[2022-06-09] MEDS ORDERED: IOVERSOL 350 MG 100mL Prefilled Syringe IV ONE (22:54)
[2022-06-09 23:33] LABS: Appearance Urine Clear (Clear); Bilirubin Urine Negative (Negative); Blood Urine Negative (Negative); Color Urine Dark Yellow; Glucose Urine UA Negative (Negative); Ketones Urine Trace (Negative); Leukocyte Esterase Urine Negative (Negative); Nitrite Urine Negative (Negative); Protein Urine Negative (Negative); Urobilinogen Urine Negative (Negative)
[2022-06-09] MEDS ORDERED: PIPERACILLIN/TAZOBACTAM 4.5 GM/120 ML BAG IV ONE (23:50)
[2022-06-10] MEDS ORDERED: VANCOMYCIN HCL 1,750 MG in SODIUM CHLORIDE 0.9% 500 ML IV ONE (00:02)
[2022-06-10] MEDS ORDERED: VANCOMYCIN CONSULT ACTIVE PRN (00:02)
[2022-06-10] MEDS ORDERED: PIPERACILLIN/TAZOBACTAM 4.5 GM/120 ML BAG IV ONE (00:02)
--- NOTE | 2022-06-10 01:14 | History & Physical Report ---
Date of Service June 10, 2022 Assessment & Plan (1) Cellulitis, scrotum: Plan: Secondary to scratching following some hypersensitivity reaction No sepsis for now ARF secondary to transient GI illness New onset anemia Active IVDU GMF Doxycycline and Zosyn Urology consult Re: Scrotal cellulitis (ER provider already in touch with Dr. Velez who recommends antibiotics.) Monitor creatinine response to IVF Anemia work-up, transfuse PRBC if hemoglobin less than 7 and or for symptomatic anemia DVT prophylaxis. Lovenox subcu Full code Text document was generated using [employer] voice recognition software. It may contain grammatical or spelling errors. Kindly contact undersigned for clarification of any documentation item in question. History of Present Illness Chief Complaint: Scrotal swelling Primary Care Provider: PCP, No History obtained from patient and records. Medical history significant for ADD, IV drug use. Last confinement July 2018 for atypical chest pain and left ankle cellulitis. Patient had self-limiting abdominal pain, nausea, vomiting symptoms about 4 days ago. No black/bloody stools/hematuria. Recurrent GI symptoms 2 days later. No chest pain, no shortness of breath. Admits to active heroin IV drug use. Patient later noted generalized pruritus causing him to scratch his eyes and scrotum without washing his hands as per her account. Progressive swelling of the scrotum and penis noted. No prior episodes. Patient consulted ER. Zosyn administered at the ER. 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 Allergies Allergy/AdvReac Type Severity Reaction Status Date / Time tramadol Allergy Severe SEIZURE Verified 06/09/22 23:09 animal dander Allergy Intermediate WATERY Verified 06/09/22 23:09 EYES, RUNNY NOSE, SNEEZING Home Medications Medication Instructions Recorded Confirmed Type No Known Home Medications 06/09/22 06/09/22 History Past Med/Surg History Medical History (Updated 06/10/22 @ 04:20 by Rk Henry MD) Asthma Chronic pain Depression Heroin abuse History of chronic back pain Mood disorder Pneumonia (05/26/13) Surgical History No significant past surgical history Family History Other No significant family history Social History Smoking Status: Never smoker Do You Dip or Chew Tobacco: Yes; Hx Alcohol Use: Yes Alcohol type: hard liquor Hx Substance Use: Yes Last Used Substance: Just Prior to Arrival Last Used Substance Other:: Friday Preferred Language: Tongan Communication Ability: Effective Building Maintenance Technician Required: No Beliefs That Will Affect Care: None Current Living Situation: Alone current occupational status: employed Other Information That Helps Us Care for You: No Feels Safe at Home: Yes Safety Concerns: Feels Safe At This Time Assistive Devices: None and Nebulizer Assistive Devices Comment: does not use nebulizer Review of Systems Review of Systems: As per HPI, all other systems reviewed and negative Physical Exam Physical Exam: GENERAL: Comfortable, pleasant, looks older than stated age, no respiratory distress SKIN: Normal color, warm HEENT: Bespectacled, mild erythema of upper and lower eyelids, pink palpebral conjunctivae, no ptosis, dry buccal mucosa NECK : Supple, no tenderness CHEST : CTA, no tenderness HEART : RRR, no obvious murmurs ABDOMEN: Some distention, nontender : Scrotal and penile swelling EXTREMITIES : No LE swelling/tenderness, no other conspicuous deformities noted NEUROLOGIC : Coherent, no facial asymmetry, no other gross focality Results & Data Results & Data ([facility]) Vital Signs (Past 12 Hours) Vital Signs Temp Pulse Pulse Resp BP BP Pulse Ox 06/10/22 00:47 60 16 126/81 96 06/09/22 22:52 68 16 122/75 97 06/09/22 22:04 60 16 124/74 94 06/09/22 22:03 94 06/09/22 21:07 06/09/22 20:45 36.8 C 84 18 126/70 95 O2 Del Method 06/10/22 00:47 Room Air 06/09/22 22:52 Room Air 06/09/22 22:04 Room Air 06/09/22 22:03 Room Air 06/09/22 21:07 Room Air 06/09/22 20:45 Room Air Laboratory Results Laboratory Results WBC 17.68 K/ul (4.8-10.8) H 06/09/22 21:45 RBC 4.39 M/uL (4.63-6.08) L 06/09/22 21:45 Hgb 11.6 g/dl (14.0-18.0) L 06/09/22 21:45 Hct 35.3 % (40.1-51.0) L 06/09/22 21:45 MCV 80.4 fL (80.0-100.0) 06/09/22 21:45 MCH 26.4 pg (25.0-34.0) 06/09/22 21:45 MCHC 32.9 g/dL (32.0-36.0) 06/09/22 21:45 RDW Std Deviation 40.6 fL (36.4-46.3) 06/09/22 21:45 RDW Coeff of Femi 13.8 % (11.5-14.5) 06/09/22 21:45 Plt Count 277 K/uL (130-400) 06/09/22 21:45 MPV 10.8 fL (9.4-12.4) 06/09/22 21:45 Immature Gran % (Auto) 0.5 % 06/09/22 21:45 Neut % (Auto) 71.1 % 06/09/22 21:45 Lymph % (Auto) 14.9 % 06/09/22 21:45 [place] % (Auto) 8.8 % 06/09/22 21:45 Eos % (Auto) 4.4 % 06/09/22 21:45 Baso % (Auto) 0.3 % 06/09/22 21:45 Neut # (Auto) 12.58 K/uL (1.4-6.5) H 06/09/22 21:45 Lymph # (Auto) 2.63 K/uL (1.2-3.4) 06/09/22 21:45 [place] # (Auto) 1.55 K/uL (0.24-0.82) H 06/09/22 21:45 Eos # (Auto) 0.78 K/uL (0-0.50) H 06/09/22 21:45 Baso # (Auto) 0.05 K/uL (0-0.2) 06/09/22 21:45 Immature Gran # (Auto) 0.09 K/uL (0.00-0.02) H 06/09/22 21:45 Sodium 136 mmol/L (136-145) 10/09/22 21:45 Potassium 4.0 mmol/L (3.5-5.1) 06/09/22 21:45 Chloride 103 mmol/L (98-107) 06/09/22 21:45 Carbon Dioxide 27 mmol/L (21-32) 06/09/22 21:45 Anion Gap 6 (3-11) 06/09/22 21:45 BUN 20 mg/dl (6-23) 06/09/22 21:45 Creatinine 1.45 mg/dl (0.6-1.4) H 06/09/22 21:45 Est Cr Clr Drug Dosing 68.4 ml/min 06/09/22 21:45 Est GFR ( Amer) 69.8 ml/min 06/09/22 21:45 Est GFR (Non-Af Amer) 60.2 ml/min 06/09/22 21:45 BUN/Creatinine Ratio 13.8 (10-20) 06/09/22 21:45 Glucose 96 mg/dl (70-99(Fasting)) 06/09/22 21:45 Calcium 8.8 mg/dl (8.5-10.1) 06/09/22 21:45 Total Bilirubin 0.4 mg/dl (0.2-1.0) 06/09/22 21:45 AST 21 U/L (13-39) 06/09/22 21:45 ALT 20 U/L (7-52) 06/09/22 21:45 Alkaline Phosphatase 61 U/L (34-104) 06/09/22 21:45 Total Protein 6.6 gm/dl (6.0-8.3) 06/09/22 21:45 Albumin 3.5 gm/dl (3.4-5.0) 06/09/22 21:45 Globulin 3.1 gm/dl (2.5-4.0) 06/09/22 21:45 Albumin/Globulin Ratio 1.1 (0.9-2) 06/09/22 21:45 Lipase 11 U/L (11-82) 06/09/22 21:45 Urine Color Dark Yellow 06/09/22 22:47 Urine Appearance Clear (Clear) 06/09/22 22:47 Urine pH 5.0 (4.5-7.5) 06/09/22 22:47 Ur Specific [place] 1.030 (1.000-1.030) 06/09/22 22:47 Urine Protein Negative (Negative) 06/09/22 22:47 Urine Glucose (UA) Negative (Negative) 06/09/22 22:47 Urine Ketones Trace (Negative) H 06/09/22 22:47 Urine Blood Negative (Negative) 06/09/22 22:47 Urine Nitrite Negative (Negative) 06/09/22 22:47 Urine Bilirubin Negative (Negative) 06/09/22 22:47 Urine Urobilinogen Negative (Negative) 06/09/22 22:47 Ur Leukocyte Esterase Negative (Negative) 06/09/22 22:[address] pelvis initial read: Diffuse soft tissue swelling of the scrotal wall in the penis. There is no soft tissue gas. The soft tissues of the scrotumor not well characterized byCT. There is a somewhat rounded area in the midline anterior scrotummeasuring 2.9 x 2.6 x 4.4 cm. It is difficult to exclude a small focal fluid collection in the anterior scrotal wall. Consider further evaluation with sonography. There are mildlyprominent bilateral inguinal lymph nodes. No abnormal fluid is seen in the pelvis Scrotal ultrasound initial read: No testicular torsion or mass. No significant hydrocele. The scrotal wall edema is seen. Afocal scrotal wall fluid collection is not demonstrated Chest x-ray as per my interpretation : Atelectasis, elevated right hemidiaphragm, borderline cardiomegaly
[2022-06-10] MEDS ORDERED: DOXYCYCLINE HYCLATE 100 MG in DEXTROSE 5% 100 ML IV STA (01:27)
[2022-06-10] MEDS ORDERED: SODIUM CHLORIDE 0.9% 1000ML 1,000 ML IV ONE (01:55)
[2022-06-10] MEDS ORDERED: diphenhydrAMINE Capsule 25 MG CAP PO PRN (02:02)
[2022-06-10] MEDS ORDERED: PROMETHAZINE HCL 12.5 MG in SODIUM CHLORIDE 0.9% 50 ML IV PRN (02:43)
[2022-06-10] MEDS ORDERED: ACETAMINOPHEN 325 MG TAB PO PRN (02:43)
[2022-06-10] MEDS ORDERED: oxyCODONE HCL IR 5 MG TAB (IMMEDIATE RELEASE) PO PRN (02:43)
[2022-06-10 03:24] LABS: Amphetamines+Metham, Urine Neg (Neg); Barbiturates, Urine Neg (Neg); Benzodiazepine, Urine Neg (Neg); Cocaine, Urine Neg (Neg); MDMA (Ecstacy), Urine Neg (Neg); Methadone, Urine Neg (Neg); Opiate, Urine Neg (Neg); Phencyclidine, Urine Neg (Neg)
[2022-06-10] MEDS: PIPERACILLIN/TAZOBACTAM 3.375 GM in DEXTROSE 5% 100 ML IV SCH ×2 (06:32→14:14)
--- NOTE | 2022-06-10 07:50 | CT Scan Report ---
CT pelvis w/IV con only HISTORY: scotal and penile swelling/edema TECHNIQUE: Multiaxial CT images of the pelvis are performed following the intravenous administration of 93 cc of Optiray 300 and reformatted in the sagittal and coronal plane. COMPARISON STUDY: Abdomen and pelvis CT 11/18/2018. FINDINGS: Diffuse subcutaneous edema within the scrotum and penis. No areas of soft tissue gas identi fied. No loculated fluid collections to suggest an abscess. Postoperative changes consistent with a p rior vasectomy. Mildly enlarged bilateral inguinal lymph nodes which are likely reactive. The prostat e gland is normal in size. The bladder is unremarkable. No pelvic free fluid. The visualized loops of bowel show no wall thickening or obstruction. IMPRESSION: 1. Diffuse subcutaneous edema within the scrotum and penis. No areas of soft tissue gas or abscess id entified. 2. Mildly enlarged bilateral inguinal lymph nodes which are likely reactive. ACT 112: Negative or not required by law. Electronically signed by: Mann Bonilla M.D. 06/10/2022 7:48 AM
--- NOTE | 2022-06-10 07:51 | Urology Consultation ---
Date of Consultation June 10, 2022 Assessment & Plan (1) Penile edema: (2) Scrotal edema: Plan 37-year-old male with spontaneous penile and scrotal edema Although patient would not let me do full exam on his genital area, suspect this is likely cellulitis given the edema and leukocytosis. Recommend continued antibiotics. No surgical indication As patient would not let me completely examine him, will follow peripherally at this point. Call urology if exam worsening. As no surgical intervention required, patient does not likely need follow-up as this is likely just a superficial infection History of Present Illness Reason for Consultation: Penile and scrotal edema Attending Physician: Ora Hamilton MD History of Present Illness 37-year-old male presented emergency department last night after developing idiopathic penile and scrotal edema. He denies any previous trauma to the area. He denies any discomfort in the area. He reports this is never happened before. He was afebrile with stable vitals. He did have a leukocytosis of 17.6. Creatinine was slightly elevated at 1.45. Urinalysis was negative. I independently reviewed a CT scan of the abdomen and pelvis which showed soft tissue swelling of the penis and scrotum but did not show any fluid collection or air. They also obtained a scrotal ultrasound which I independently reviewed. There is no torsion or mass. There is no hydrocele. There was significant scrotal wall edema. No fluid collection was noted. He received vancomycin and Zosyn in the ED. Allergies Allergy/AdvReac Type Severity Reaction Status Date / Time tramadol Allergy Severe SEIZURE Verified 06/09/22 23:09 animal dander Allergy Intermediate WATERY Verified 06/09/22 23:09 EYES, RUNNY NOSE, SNEEZING Home Medications Medication Instructions Recorded Confirmed Type No Known Home Medications 06/09/22 06/09/22 History Patient History Medical History (Updated 06/10/22 @ 08:08 by Yang Velez MD) Asthma Chronic pain Depression Heroin abuse History of chronic back pain Mood disorder Pneumonia (05/26/13) Surgical History No significant past surgical history Family History Other No significant family history Social History Smoking Status: Never smoker Do You Dip or Chew Tobacco: Yes; Hx Alcohol Use: Yes Alcohol type: hard liquor Hx Substance Use: Yes Last Used Substance: Just Prior to Arrival Last Used Substance Other:: Friday Preferred Language: Czech Communication Ability: Effective Order Entry Clerk Required: No Beliefs That Will Affect Care: None Current Living Situation: Alone current occupational status: employed Other Information That Helps Us Care for You: No Feels Safe at Home: Yes Safety Concerns: Feels Safe At This Time Assistive Devices: None and Nebulizer Assistive Devices Comment: does not use nebulizer Review of Systems Review of Systems: 14 point review of systems negative outside of what is listed above in HPI Physical Exam Physical Exam: General: Alert and oriented, no acute distress HEENT: Normocephalic, mucous membranes moist Pulmonary: Nonlabored respirations Abdomen: Nondistended : Mild penile and scrotal edema. No appreciable erythema. Nontender to palpation. Patient would not allow me to retract foreskin to evaluate his uncircumcised penis. No fluctuation or crepitus. Extremities: Moves all 4 spontaneously Neuro: No gross deficits Skin: Warm, dry, no rashes noted Results & Data ([facility]) Vital Signs (Past 12 Hours) Vital Signs Temp Pulse Pulse Resp BP BP Pulse Ox 06/10/22 02:35 06/10/22 02:35 36.9 C 16 131/75 93 06/10/22 02:24 59 L 14 120/84 97 06/10/22 00:47 60 16 126/81 96 06/09/22 22:52 68 16 122/75 97 06/09/22 22:04 60 16 124/74 94 06/09/22 22:03 94 06/09/22 21:07 06/09/22 20:45 36.8 C 84 18 126/70 95 O2 Del Method 06/10/22 02:35 Room Air 06/10/22 02:35 Room Air 06/10/22 02:24 Room Air 06/10/22 00:47 Room Air 06/09/22 22:52 Room Air 06/09/22 22:04 Room Air 06/09/22 22:03 Room Air 06/09/22 21:07 Room Air 06/09/22 20:45 Room Air PG Care Time/CCT Total # of Minutes Spent Total Time Spent with Patient: Total time spent is greater than 50% in coordination of care (as documented) at patient's floor/unit and/or counseling patient: Coding Level of Care Code 62870 Inpt Consult Level 4 Diagnoses Penile edema N48.89 Scrotal edema N50.89
--- NOTE | 2022-06-10 08:07 | Ultrasound Report ---
TESTICULAR ULTRASOUND HISTORY: Scrotal swelling. swelling COMPARISON: Abdomen and pelvis CT 06/09/2022. FINDINGS: Right testis: 5.0 x 1.9 x 2.8 cm. There are no intratesticular masses. Questionable slight increased color flow and comparison to the left. No hydrocele. The epididymis is unremarkable. Left testis: 4.4 x 1.7 x 2.8 cm. There are no intratesticular masses. Normal color flow. No hydrocele . The epididymis is unremarkable. Miscellaneous: There is diffuse scrotal subcutaneous edema. No loculated fluid collections to suggest an abscess. IMPRESSION: 1. Diffuse scrotal subcutaneous edema. No loculated fluid collections to suggest an abscess. 2. Questionable slight increased color flow within the right testis. This could represent a developin g orchitis. ACT 112: Negative or not required by law. Electronically signed by: Mann Bonilla M.D. 06/10/2022 8:06 AM
[2022-06-10] MEDS ORDERED: LORATADINE 10 MG TAB PO SCH (09:00)
[2022-06-10] MEDS ORDERED: ENOXAPARIN INJ 40 MG/0.4 ML SYR SQ SCH (09:00)
--- NOTE | 2022-06-10 09:05 | XRay Report ---
XR chest 1V portable HISTORY: 37 years-old Male renal failure acute renal failure COMPARISON: Chest radiograph 12/23/2020 TECHNIQUE: AP view of the chest FINDINGS: Cardiomediastinal and hilar silhouettes are within normal limits. No pneumothorax, pleural effusion, airspace consolidation or overt pulmonary edema. The bones of the chest appear grossly intact. IMPRESSION: No acute process. ACT 112: Negative or not required by law. The above report was generated using voice recognition software. It may contain grammatical, syntax o r spelling errors. Electronically signed by: Harris Martinez M.D. 06/10/2022 9:04 AM
[2022-06-10 09:12] LABS: Basophils # (auto) 0.01 K/uL (0-0.2); Basophils % (auto) 0.1 %; Eosinophils # (auto) 0.01 K/uL (0-0.50); Eosinophils % (auto) 0.1 %; Hematocrit (blood only) 39.4 % (40.1-51.0); Hemoglobin 13.1 g/dl (14.0-18.0); Immature Granulocytes # (auto) 0.07 K/uL (0.00-0.02); Immature Granulocytes % (auto) 0.7 %; Lymphocytes # (auto) 0.83 K/uL (1.2-3.4); Lymphocytes % (auto) 8.6 %; Mean Corpuscular Hemoglobin 26.5 pg (25.0-34.0); Mean Corpuscular Hgb Conc 33.2 g/dL (32.0-36.0); Mean Corpuscular Volume 79.8 fL (80.0-100.0); Monocytes # (auto) 0.13 K/uL (0.24-0.82); Monocytes % (auto) 1.4 %; Neutrophils # (auto) 8.56 K/uL (1.4-6.5); Neutrophils % (auto) 89.1 %; Platelet Count 274 K/uL (130-400); RDW Coefficient of Variation 13.9 % (11.5-14.5); RDW Standard Deviation 40.5 fL (36.4-46.3); Red Blood Count 4.94 M/uL (4.63-6.08); White Blood Count 9.61 K/ul (4.8-10.8)
[2022-06-10 09:39] LABS: BUN Creatinine Ratio 19.2 (10-20); Calcium 9.2 mg/dl (8.5-10.1); Creatinine Clr Calc Pharmacy 82.6 ml/min; Est GFR (African American) 87.8 ml/min; Est GFR (Non-African American) 75.7 ml/min; Potassium 4.6 mmol/L (3.5-5.1)
[2022-06-10 09:49] LABS: Thyroid Stimulating Hormone 7.378 uIu/ml (0.300-4.500)
[2022-06-10 09:55] LABS: Ferritin 121.6 ng/ml (8-388)
[2022-06-10 10:02] LABS: Folate (Folic Acid) 9.67 ng/ml (>5.38)
[2022-06-10 10:08] LABS: Reticulocyte % 1.4 % (0.5-2.0); Reticulocytes # 0.07 10^6/uL (0.02-0.10)
[2022-06-10 10:21] LABS: T4 Free Thyroxine 0.85 ng/dl (0.61-1.60)
--- NOTE | 2022-06-10 14:38 | Discharge Summary ---
Date of Service June 10, 2022 Admission HPI Per Admitting Provider History obtained from patient and records. Medical history significant for ADD, IV drug use. Last confinement July 2018 for atypical chest pain and left ankle cellulitis. Patient had self-limiting abdominal pain, nausea, vomiting symptoms about 4 days ago. No black/bloody stools/hematuria. Recurrent GI symptoms 2 days later. No chest pain, no shortness of breath. Admits to active heroin IV drug use. Patient later noted generalized pruritus causing him to scratch his eyes and scrotum without washing his hands as per her account. Progressive swelling of the scrotum and penis noted. No prior episodes. Patient consulted ER. Zosyn administered at the ER. 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 Admission Exam Per Admitting Provider GENERAL: Comfortable, pleasant, looks older than stated age, no respiratory distress SKIN: Normal color, warm HEENT: Bespectacled, mild erythema of upper and lower eyelids, pink palpebral conjunctivae, no ptosis, dry buccal mucosa NECK : Supple, no tenderness CHEST : CTA, no tenderness HEART : RRR, no obvious murmurs ABDOMEN: Some distention, nontender : Scrotal and penile swelling EXTREMITIES : No LE swelling/tenderness, no other conspicuous deformities noted NEUROLOGIC : Coherent, no facial asymmetry, no other gross focality Principal Diagnosis Scrotum cellulitis Discharge Exam General- No acute distress Head- atraumatic Eyes- PERRL, EOMI, ENT- oropharynx clear Neck- supple, no JVD Lungs- clear to auscultation Heart- regular rhythm; no murmur Abdomen- normal bowel sounds, soft, nontender : Scrotal and penile swelling Extremities- no calf tenderness Neuro- alert, oriented x 3; PERRL, EOMI; no facial palsy; no dysarthria Skin- warm & dry Discharge Data Allergies Allergy/AdvReac Type Severity Reaction Status Date / Time tramadol Allergy Severe SEIZURE Verified 06/09/22 23:09 animal dander Allergy Intermediate WATERY Verified 06/09/22 23:09 EYES, RUNNY NOSE, SNEEZING Consultations 06/10/22 01:03 ED Decision to Admit Stat 06/10/22 01:53 Consult Urology Routine Ordered Studies 06/09/22 21:29 CT pelvis w/IV con only Urgent 06/09/22 23:36 US scrotum/testicle Urgent Laboratory Results WBC 9.61 K/ul (4.8-10.8) 06/10/22 08:41 RBC 4.94 M/uL (4.63-6.08) 06/10/22 08:41 Hgb 13.1 g/dl (14.0-18.0) L 06/10/22 08:41 Hct 39.4 % (40.1-51.0) L 06/10/22 08:41 MCV 79.8 fL (80.0-100.0) L 06/10/22 08:41 MCH 26.5 pg (25.0-34.0) 06/10/22 08:41 MCHC 33.2 g/dL (32.0-36.0) 06/10/22 08:41 RDW Std Deviation 40.5 fL (36.4-46.3) 06/10/22 08:41 RDW Coeff of Femi 13.9 % (11.5-14.5) 06/10/22 08:41 Plt Count 274 K/uL (130-400) 06/10/22 08:41 MPV 11.0 fL (9.4-12.4) 06/10/22 08:41 Immature Gran % (Auto) 0.7 % 06/10/22 08:41 Neut % (Auto) 89.1 % 06/10/22 08:41 Lymph % (Auto) 8.6 % 06/10/22 08:41 [place] % (Auto) 1.4 % 06/10/22 08:41 Eos % (Auto) 0.1 % 06/10/22 08:41 Baso % (Auto) 0.1 % 06/10/22 08:41 Reticulocyte % (Auto) 1.4 % (0.5-2.0) 06/10/22 08:41 Neut # (Auto) 8.56 K/uL (1.4-6.5) H 06/10/22 08:41 Lymph # (Auto) 0.83 K/uL (1.2-3.4) L 06/10/22 08:41 [place] # (Auto) 0.13 K/uL (0.24-0.82) L 06/10/22 08:41 Eos # (Auto) 0.01 K/uL (0-0.50) 06/10/22 08:41 Baso # (Auto) 0.01 K/uL (0-0.2) 06/10/22 08:41 Reticulocyte # 0.07 10^6/uL (0.02-0.10) 06/10/22 08:41 Immature Gran # (Auto) 0.07 K/uL (0.00-0.02) H 06/10/22 08:41 Sodium 136 mmol/L (136-145) 06/10/22 08:41 Potassium 4.6 mmol/L (3.5-5.1) 06/10/22 08:41 Chloride 104 mmol/L (98-107) 06/10/22 08:41 Carbon Dioxide 25 mmol/L (21-32) 06/10/22 08:41 Anion Gap 7 (3-11) 06/10/22 08:41 BUN 23 mg/dl (6-23) 06/10/22 08:41 Creatinine 1.20 mg/dl (0.6-1.4) 06/10/22 08:41 Est Cr Clr Drug Dosing 82.6 ml/min 06/10/22 08:41 Est GFR ( Amer) 87.8 ml/min 06/10/22 08:41 Est GFR (Non-Af Amer) 75.7 ml/min 06/10/22 08:41 BUN/Creatinine Ratio 19.2 (10-20) 06/10/22 08:41 Glucose 173 mg/dl (70-99(Fasting)) H 06/10/22 08:41 Calcium 9.2 mg/dl (8.5-10.1) 06/10/22 08:41 Magnesium 1.8 mg/dl (1.7-2.4) 06/09/22 21:45 Iron 77 mcg/dl (35-175) 06/10/22 08:41 Transferrin 239 mg/dl (200-360) 06/10/22 08:41 Ferritin 121.6 ng/ml (8-388) 06/10/22 08:41 Total Bilirubin 0.4 mg/dl (0.2-1.0) 06/09/22 21:45 AST 21 U/L (13-39) 06/09/22 21:45 ALT 20 U/L (7-52) 06/09/22 21:45 Alkaline Phosphatase 61 U/L (34-104) 06/09/22 21:45 Total Protein 6.6 gm/dl (6.0-8.3) 06/09/22 21:45 Albumin 3.5 gm/dl (3.4-5.0) 06/09/22 21:45 Globulin 3.1 gm/dl (2.5-4.0) 06/09/22 21:45 Albumin/Globulin Ratio 1.1 (0.9-2) 06/09/22 21:45 Lipase 11 U/L (11-82) 06/09/22 21:45 Vitamin B12 464 pg/ml (180-914) 06/09/22 21:45 Folate 9.67 ng/ml (>5.38) 06/09/22 21:45 TSH 7.378 uIu/ml (0.300-4.500) H 06/09/22 21:45 Free T4 0.85 ng/dl (0.61-1.60) 06/09/22 21:45 Urine Color Dark Yellow 06/09/22 22:47 Urine Appearance Clear (Clear) 06/09/22 22:47 Urine pH 5.0 (4.5-7.5) 06/09/22 22:47 Ur Specific [place] 1.030 (1.000-1.030) 06/09/22 22:47 Urine Protein Negative (Negative) 06/09/22 22:47 Urine Glucose (UA) Negative (Negative) 06/09/22 22:47 Urine Ketones Trace (Negative) H 06/09/22 22:47 Urine Blood Negative (Negative) 06/09/22 22:47 Urine Nitrite Negative (Negative) 06/09/22 22:47 Urine Bilirubin Negative (Negative) 06/09/22 22:47 Urine Urobilinogen Negative (Negative) 06/09/22 22:47 Ur Leukocyte Esterase Negative (Negative) 06/09/22 22:47 Urine Opiates Screen Neg (Neg) 06/10/22 02:40 Ur Methadone, Qual Neg (Neg) 06/10/22 02:40 Urine Barbiturates Neg (Neg) 06/10/22 02:40 Ur Phencyclidine (PCP) Neg (Neg) 06/10/22 02:40 U Amphetamin/Meth Scrn Neg (Neg) 06/10/22 02:40 MDMA (Ecstasy) Screen Neg (Neg) 06/10/22 02:40 U Benzodiazepines Scrn Neg (Neg) 06/10/22 02:40 Ur Cocaine Metabolite Neg (Neg) 06/10/22 02:40 U Marijuana (THC) Screen Neg (Neg) 06/10/22 02:40 SARS-CoV-2, RNA, NAAT NEGATIVE (NEGATIVE) 06/10/22 00:55 Blood Type A Negative 06/10/22 08:42 Antibody Screen NEGATIVE 06/10/22 08:[address] 06/09/22 21:29 CT pelvis w/IV con only HISTORY: scotal and penile swelling/edema TECHNIQUE: Multiaxial CT images of the pelvis are performed following the intravenous administration of 93 cc of Optiray 300 and reformatted in the sagittal and coronal plane. COMPARISON STUDY: Abdomen and pelvis CT 11/18/2018. FINDINGS: Diffuse subcutaneous edema within the scrotum and penis. No areas of soft tissue gas identified. No loculated fluid collections to suggest an abscess. Postoperative changes consistent with a prior vasectomy. Mildly enlarged bilateral inguinal lymph nodes which are likely reactive. The prostate gland is normal in size. The bladder is unremarkable. No pelvic free fluid. The visualized loops of bowel show no wall thickening or obstruction. IMPRESSION: 1. Diffuse subcutaneous edema within the scrotum and penis. No areas of soft tissue gas or abscess identified. 2. Mildly enlarged bilateral inguinal lymph nodes which are likely reactive. ACT 112: Negative or not required by law. Electronically signed by: Mann Bonilla M.D. 06/10/2022 7:48 AM Scrotum Ultrasound 06/09/22 23:36 TESTICULAR ULTRASOUND HISTORY: Scrotal swelling. swelling COMPARISON: Abdomen and pelvis CT 06/09/2022. FINDINGS: Right testis: 5.0 x 1.9 x 2.8 cm. There are no intratesticular masses. Questionable slight increased color flow and comparison to the left. No hydrocele. The epididymis is unremarkable. Left testis: 4.4 x 1.7 x 2.8 cm. There are no intratesticular masses. Normal color flow. No hydrocele. The epididymis is unremarkable. Miscellaneous: There is diffuse scrotal subcutaneous edema. No loculated fluid collections to suggest an abscess. IMPRESSION: 1. Diffuse scrotal subcutaneous edema. No loculated fluid collections to suggest an abscess. 2. Questionable slight increased color flow within the right testis. This could represent a developing orchitis. ACT 112: Negative or not required by law. Electronically signed by: Mann Bonilla M.D. 06/10/2022 8:06 AM Chest X-Ray 06/10/22 01:07 XR chest 1V portable HISTORY: 37 years-old Male renal failure acute renal failure COMPARISON: Chest radiograph 12/23/2020 TECHNIQUE: AP view of the chest FINDINGS: Cardiomediastinal and hilar silhouettes are within normal limits. No pneum othorax, pleural effusion, airspace consolidation or overt pulmonary edema. The bones of the chest appear grossly intact. IMPRESSION: No acute process. ACT 112: Negative or not required by law. The above report was generated using voice recognition software. It may contain grammatical, syntax or spelling errors. Electronically signed by: Harris Martinez M.D. 06/10/2022 9:04 AM Hospital Course (1) Cellulitis, scrotum: Scrotum u/s showed diffuse scrotal subcutaneous edema. No loculated fluid collections to suggest an abscess. Questionable slight increased color flow within the right testis. CT pelvis showed diffuse subcutaneous edema within the scrotum and penis. No areas of soft tissue gas or abscess identified. Mildly enlarged bilateral inguinal lymph nodes which are likely reactive. Started on Zosyn and doxycycline on admission Secondary to scratching following some hypersensitivity reaction Urology on board- recommended to continue current management Pt said that swelling and redness improves. Pt does not want to remain in the hospital. he wants to leave AMA Pt understood the risk by leaving against medical advice such as worsening penile and scrotum swelling, worsening infection, sepsis, renal failure and even ARF secondary to transient GI illness Cretinine on admission 1.45 Received IVF Creatinine improved Substance abuse (IVDU) Counseling on substance abuse cessation and seek for help DVT px on Lovenox Disposition Pt signed AMA Total Time Total Time Spent Total Time Spent (In Minutes): 35 minutes Discharge Plan Discharge Items Patient Disposition: Against Medical Advice Reason For Visit: ARF, SCROTAL CELLULITIS Activity: Resume your previous activity Non-emergency contact: Primary Care Provider Follow-up/Referrals: Faustino Pablo MD [Primary Care Provider] - (Date & Time 06/13/2022 9:40 AM Provider Chaparro Quinn MD Department [facility] ) 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 You understood the risk by leaving against medical advice such as worsening penile and scrotum swelling, worsening infection, sepsis, renal failure and even Follow up with primary care provider 06/13/2022 @ 9:40 AM Chaparro Quinn MD Department (Dr. Pablo's colleague) [facility] Your provider will check your Hba1c to screen for diabetes since your glucose was elevated Complete the course of the antibiotic with Augmentin Pending Studies at Discharge: Yes (blood culture ) Stand-Alone Forms: My Rosalind, Smoking Cessation Medications and DC Order Prescriptions: No Action No Known Home Medications Discharge Orders: Left Against Medical Advice (Routine); Ordered 06/10/22 Ordered By: Ora Hamilton Admission Data Admit Date/Time: 06/10/22 01:57 Attending Provider: Ora Hamilton Admit Provider: Rk Henry Primary Care Provider: Faustino Pablo Other Providers: Rk Henry ; Yang Velez
[2022-06-10] MEDS ORDERED: DOXYCYCLINE HYCLATE 100 MG CAP PO SCH (21:00)
== END 2022-06-10 15:14 | disposition left against medical advice (07) | DRG 728 ==
LOC: ED 20:33 → 3W 06-10 01:57 → INTOOBSV 06-10 01:57 → 3W 06-10 02:35

== ENCOUNTER 2023-02-03 23:57 | Inpatient (IN) ==
[2023-02-04 00:58] LABS: Basophils # (auto) 0.04 K/uL (0-0.2); Basophils % (auto) 0.5 %; Eosinophils # (auto) 0.43 K/uL (0-0.50); Eosinophils % (auto) 4.9 %; Hematocrit (blood only) 39.9 % (42.0-52.0); Hemoglobin 13.2 g/dl (14.0-18.0); Immature Granulocytes # (auto) 0.02 K/uL (0.01-0.20); Immature Granulocytes % (auto) 0.2 %; Lymphocytes # (auto) 2.64 K/uL (1.2-3.4); Lymphocytes % (auto) 30.1 %; Mean Corpuscular Hemoglobin 26.3 pg (25.0-34.0); Mean Corpuscular Hgb Conc 33.1 g/dL (32.0-36.0); Mean Corpuscular Volume 79.5 fL (80.0-100.0); Mean Platelet Volume 11.1 fL (9.4-12.4); Monocytes # (auto) 0.96 K/uL (0.11-0.59); Neutrophils # (auto) 4.67 K/uL (1.40-6.50); Neutrophils % (auto) 53.3 %; Platelet Count 260 K/uL (130-400); RDW Coefficient of Variation 13.1 % (11.5-14.5); Red Blood Count 5.02 M/uL (4.70-6.10); White Blood Count 8.76 K/ul (4.8-10.8)
[2023-02-04 01:04] LABS: Appearance Urine Clear (Clear); Bilirubin Urine Negative (Negative); Blood Urine Negative (Negative); Color Urine Yellow; Glucose Urine UA Negative (Negative); Ketones Urine Negative (Negative); Leukocyte Esterase Urine Negative (Negative); Nitrite Urine Negative (Negative); Protein Urine Negative (Negative); Specific Gravity Urine 1.022 (1.000-1.030); Urobilinogen Urine Negative (Negative)
[2023-02-04 01:07] LABS: Acetaminophen < 3 ug/ml (10-30); Salicylate < 3.0 mg/dl (3.0-30)
[2023-02-04 01:11] LABS: Albumin Globulin Ratio 1.2 (0.9-2); Bilirubin,Total 0.3 mg/dl (0.2-1.0); Calcium 9.1 mg/dl (8.6-10.3); Creatinine Clr Calc Pharmacy 98.2 ml/min; Est GFR (African American) 97.5 ml/min; Est GFR (Non-African American) 84.1 ml/min; Globulin 3.3 gm/dl (2.5-4.0); Potassium 4.6 mmol/L (3.5-5.1); Total Protein 7.3 gm/dl (6.0-8.3)
--- NOTE | 2023-02-04 01:34 | Emergency Department Note ---
ED Provider Note CHIEF COMPLAINT: Depression HISTORY OF PRESENT ILLNESS: This 37-year-old male patient with past medical history of substance abuse on chronic buprenorphine presents to the emergency department with complaints of depression. Patient states he has lost multiple people in his life over the last 3 to 4 months and feels sometimes as though its not worth living anymore. He was discussing this with his mother jenn who thought the patient needed help. He was willing to come voluntarily. Patient states he does not necessarily have a plan to kill himself but would like to "get his head straight" and get back on his medications. He states he has not been on his medications for at least a few months. Patient states he did use cocaine and heroin yesterday but has not used any today. It is difficult for him to want to get out of bed. He states he sleeps quite a bit. REVIEW OF SYSTEMS: A review of systems was performed with positives and pertinent negatives listed in the history of present illness. 10 systems were reviewed and are otherwise negative. ALLERGIES: see below MEDICATIONS: see below PMH: see below SOCIAL HISTORY: see below DDx: Mood disorder, hypoglycemia, electrolyte abnormalities, cardiac sources, intracerebral event, toxicologic, trauma, neurologic, as well as other pathologies. PHYSICAL EXAM: Vital signs reviewed. General: Well-appearing 37 yo male, in no significant distress. HEENT: No scleral icterus, PERRLA, neck supple. Atraumatic. MMM. Edentulous Cardiovascular: Regular rate and rhythm, no extra sounds. Pulmonary: Clear to auscultation bilaterally, normal work of breathing. Abdomen: Soft, nontender, nondistended, positive bowel sounds. Musculoskeletal: Atraumatic, no peripheral edema. Neurologic: Patient awake alert and oriented x 3, speech is clear Psych: Positive passive SI, negative HI Skin: Warm, dry, no rash EMERGENCY DEPARTMENT COURSE/MDM: [] DISPOSITION: Past Med/Surg History Medical History Asthma Cellulitis of scrotum Chronic pain Depression Heroin abuse History of chronic back pain Mood disorder Penile edema Pneumonia (05/26/13) Surgical History No significant past surgical history Family History Other No significant family history Social History Smoking Status: Never smoker Do You Dip or Chew Tobacco: Yes; Hx Alcohol Use: Yes Alcohol type: hard liquor Hx Substance Use: Yes Last Used Substance: Just Prior to Arrival Last Used Substance Other:: Friday Preferred Language: Haitian Communication Ability: Effective Adjunct Physics Instructor Required: No Beliefs That Will Affect Care: None Current Living Situation: Alone current occupational status: employed Feels Safe at Home: Yes Gender Identity: Male Assistive Devices: None Allergies Allergies Allergy/AdvReac Type Severity Reaction Status Date / Time tramadol Allergy Severe SEIZURE Verified 06/09/22 23:09 animal dander Allergy Intermediate WATERY Verified 06/09/22 23:09 EYES, RUNNY NOSE, SNEEZING Home Meds Home Medications Medication Instructions Recorded Confirmed buprenorphine HCl 8 mg sublingual 8 mg sublingual 3XD 12/24/22 12/24/22 tablet Previous Rx's Medication Instructions Recorded methocarbamol 500 mg tablet 500 mg PO BID PRN muscle spasm #10 01/02/23 tabs Results & Data (ED) Vital Signs Vital Signs - 24 hr 02/04/23 00:02 02/04/23 01:00 Temperature 36.6 C Temperature Source Temporal Artery Scan Pulse Rate 52 L 49 L Respiratory Rate 18 Respiratory Effort / Characteristics Non-Labored Spontaneous Respiratory Depth Normal Respiratory Pattern Regular Blood Pressure 161/88 H Blood Pressure Mean 112 Blood Pressure Position Sitting Pulse Oximetry 96 Oxygen Delivery Method Room Air Sepsis Recent Fever Within 48 Hours No Sepsis New/Unexplained Change in Mental Status N/A Sepsis Action Taken by Nursing No Action Required Home Medications Current Medication List: was personally reviewed by me Laboratory Data Attestation: I reviewed the patient's lab results. 02/04/23 00:38 02/04/23 00:38 Lab Results 02/04/23 02/04/23 02/04/23 Range/Units 00:38 00:38 00:38 WBC 8.76 (4.8-10.8) K/ul RBC 5.02 (4.70-6.10) M/uL Hgb 13.2 L (14.0-18.0) g/dl Hct 39.9 L (42.0-52.0) % MCV 79.5 L (80.0-100.0) fL MCH 26.3 (25.0-34.0) pg MCHC 33.1 (32.0-36.0) g/dL RDW Std Deviation 37.0 (36.4-46.3) fL RDW Coeff of Femi 13.1 (11.5-14.5) % Plt Count 260 (130-400) K/uL MPV 11.1 (9.4-12.4) fL Immature Gran % (Auto) 0.2 % Neut % (Auto) 53.3 % Lymph % (Auto) 30.1 % [place] % (Auto) 11.0 % Eos % (Auto) 4.9 % Baso % (Auto) 0.5 % Neut # (Auto) 4.67 (1.40-6.50) K/uL Lymph # (Auto) 2.64 (1.2-3.4) K/uL [place] # (Auto) 0.96 H (0.11-0.59) K/uL Eos # (Auto) 0.43 (0-0.50) K/uL Baso # (Auto) 0.04 (0-0.2) K/uL Immature Gran # (Auto) 0.02 (0.01-0.20) K/uL Sodium 136 (136-145) mmol/L Potassium 4.6 (3.5-5.1) mmol/L Chloride 103 (98-107) mmol/L Carbon Dioxide 27 (21-32) mmol/L Anion Gap 6 (3-11) BUN 22 (6-23) mg/dl Creatinine 1.10 (0.6-1.4) mg/dl Est Cr Clr Drug Dosing 98.2 ml/min Est GFR ( Amer) 97.5 ml/min Est GFR (Non-Af Amer) 84.1 ml/min BUN/Creatinine Ratio 20.0 (10-20) Glucose 117 H (70-99(Fasting)) mg/dl Calcium 9.1 (8.6-10.3) mg/dl Total Bilirubin 0.3 (0.2-1.0) mg/dl AST 23 (13-39) U/L ALT 20 (7-52) U/L Alkaline Phosphatase 69 (34-104) U/L Total Protein 7.3 (6.0-8.3) gm/dl Albumin 4.0 (3.4-5.0) gm/dl Globulin 3.3 (2.5-4.0) gm/dl Albumin/Globulin Ratio 1.2 (0.9-2) TSH 3.829 (0.300-4.500) uIu/ml Urine Color Urine Appearance (Clear) Urine pH (4.5-7.5) Ur Specific [place] (1.000-1.030) Urine Protein (Negative) Urine Glucose (UA) (Negative) Urine Ketones (Negative) Urine Blood (Negative) Urine Nitrite (Negative) Urine Bilirubin (Negative) Urine Urobilinogen (Negative) Ur Leukocyte Esterase (Negative) Salicylates (3.0-30) mg/dl Acetaminophen (10-30) ug/ml Ethyl Alcohol mg/dL (<10.0) mg/dl SARS-CoV-2, RNA, NAAT (NEGATIVE) 02/04/23 02/04/23 02/04/23 Range/Units 00:38 00:38 00:40 WBC (4.8-10.8) K/ul RBC (4.70-6.10) M/uL Hgb (14.0-18.0) g/dl Hct (42.0-52.0) % MCV (80.0-100.0) fL MCH (25.0-34.0) pg MCHC (32.0-36.0) g/dL RDW Std Deviation (36.4-46.3) fL RDW Coeff of Femi (11.5-14.5) % Plt Count (130-400) K/uL MPV (9.4-12.4) fL Immature Gran % (Auto) % Neut % (Auto) % Lymph % (Auto) % [place] % (Auto) % Eos % (Auto) % Baso % (Auto) % Neut # (Auto) (1.40-6.50) K/uL Lymph # (Auto) (1.2-3.4) K/uL [place] # (Auto) (0.11-0.59) K/uL Eos # (Auto) (0-0.50) K/uL Baso # (Auto) (0-0.2) K/uL Immature Gran # (Auto) (0.01-0.20) K/uL Sodium (136-145) mmol/L Potassium (3.5-5.1) mmol/L Chloride (98-107) mmol/L Carbon Dioxide (21-32) mmol/L Anion Gap (3-11) BUN (6-23) mg/dl Creatinine (0.6-1.4) mg/dl Est Cr Clr Drug Dosing ml/min Est GFR ( Amer) ml/min Est GFR (Non-Af Amer) ml/min BUN/Creatinine Ratio (10-20) Glucose (70-99(Fasting)) mg/dl Calcium (8.6-10.3) mg/dl Total Bilirubin (0.2-1.0) mg/dl AST (13-39) U/L ALT (7-52) U/L Alkaline Phosphatase (34-104) U/L Total Protein (6.0-8.3) gm/dl Albumin (3.4-5.0) gm/dl Globulin (2.5-4.0) gm/dl Albumin/Globulin Ratio (0.9-2) TSH (0.300-4.500) uIu/ml Urine Color Yellow Urine Appearance Clear (Clear) Urine pH 5.0 (4.5-7.5) Ur Specific [place] 1.022 (1.000-1.030) Urine Protein Negative (Negative) Urine Glucose (UA) Negative (Negative) Urine Ketones Negative (Negative) Urine Blood Negative (Negative) Urine Nitrite Negative (Negative) Urine Bilirubin Negative (Negative) Urine Urobilinogen Negative (Negative) Ur Leukocyte Esterase Negative (Negative) Salicylates < 3.0 L (3.0-30) mg/dl Acetaminophen < 3 L (10-30) ug/ml Ethyl Alcohol mg/dL < 10.0 (<10.0) mg/dl SARS-CoV-2, RNA, NAAT (NEGATIVE) 02/04/23 Range/Units 00:40 WBC (4.8-10.8) K/ul RBC (4.70-6.10) M/uL Hgb (14.0-18.0) g/dl Hct (42.0-52.0) % MCV (80.0-100.0) fL MCH (25.0-34.0) pg MCHC (32.0-36.0) g/dL RDW Std Deviation (36.4-46.3) fL RDW Coeff of Femi (11.5-14.5) % Plt Count (130-400) K/uL MPV (9.4-12.4) fL Immature Gran % (Auto) % Neut % (Auto) % Lymph % (Auto) % [place] % (Auto) % Eos % (Auto) % Baso % (Auto) % Neut # (Auto) (1.40-6.50) K/uL Lymph # (Auto) (1.2-3.4) K/uL [place] # (Auto) (0.11-0.59) K/uL Eos # (Auto) (0-0.50) K/uL Baso # (Auto) (0-0.2) K/uL Immature Gran # (Auto) (0.01-0.20) K/uL Sodium (136-145) mmol/L Potassium (3.5-5.1) mmol/L Chloride (98-107) mmol/L Carbon Dioxide (21-32) mmol/L Anion Gap (3-11) BUN (6-23) mg/dl Creatinine (0.6-1.4) mg/dl Est Cr Clr Drug Dosing ml/min Est GFR ( Amer) ml/min Est GFR (Non-Af Amer) ml/min BUN/Creatinine Ratio (10-20) Glucose (70-99(Fasting)) mg/dl Calcium (8.6-10.3) mg/dl Total Bilirubin (0.2-1.0) mg/dl AST (13-39) U/L ALT (7-52) U/L Alkaline Phosphatase (34-104) U/L Total Protein (6.0-8.3) gm/dl Albumin (3.4-5.0) gm/dl Globulin (2.5-4.0) gm/dl Albumin/Globulin Ratio (0.9-2) TSH (0.300-4.500) uIu/ml Urine Color Urine Appearance (Clear) Urine pH (4.5-7.5) Ur Specific [place] (1.000-1.030) Urine Protein (Negative) Urine Glucose (UA) (Negative) Urine Ketones (Negative) Urine Blood (Negative) Urine Nitrite (Negative) Urine Bilirubin (Negative) Urine Urobilinogen (Negative) Ur Leukocyte Esterase (Negative) Salicylates (3.0-30) mg/dl Acetaminophen (10-30) ug/ml Ethyl Alcohol mg/dL (<10.0) mg/dl SARS-CoV-2, RNA, NAAT NEGATIVE (NEGATIVE) Discharge Plan Visit Data Chief Complaint: Mental Health Evaluation Stated Complaint: SEVERELY DEPRESSED ED Provider: Zabrina Garcia Forms Stand Alone Forms: [facility], Suicide Prevention Resources Prescriptions Prescriptions: No Action buprenorphine HCl 8 mg tablet, sublingual 8 mg SUBLINGUAL 3XD methocarbamol 500 mg tablet 500 mg PO BID PRN (Reason: muscle spasm) Qty: 10 0RF Referrals Referrals: Faustino Pablo MD [Primary Care Provider] -
[2023-02-04 01:55] LABS: Amphetamines+Metham, Urine Neg (Neg); Barbiturates, Urine Neg (Neg); Benzodiazepine, Urine Neg (Neg); Cocaine, Urine Pos (Neg); MDMA (Ecstacy), Urine Pos (Neg); Methadone, Urine Neg (Neg); Opiate, Urine Neg (Neg); Phencyclidine, Urine Neg (Neg)
[2023-02-04] MEDS ORDERED: BISMUTH SUBSALICYLATE LIQD 236 ML PO PRN (04:37)
[2023-02-04] MEDS ORDERED: hydrOXYzine HCl 25 MG TAB PO PRN ×2 (04:37)
[2023-02-04] MEDS ORDERED: ACETAMINOPHEN 325 MG TAB PO PRN (04:37)
[2023-02-04] MEDS ORDERED: SODIUM CHLORIDE 0.65% NA SOLN 45 ML (OCEAN) PRN (04:37)
[2023-02-04] MEDS ORDERED: ALUMINUM/MAGNESIUM SUSP 30 ML UDC PO PRN (04:37)
[2023-02-04] MEDS ORDERED: MAGNESIUM HYDROXIDE SUSP 30 ML UDC PO PRN (04:37)
--- NOTE | 2023-02-04 09:04 | History & Physical ---
Date of Service February 04, 2023 Impression / Recommendations Impression 37 y/o man who denies any psychiatric history or symptoms other than substance use disorders and who acknowledges malingering by reporting suicidality to avoid a urine toxicology screen he knew he would fail. (1) Malingering: (2) Opioid use disorder: (3) Cocaine use disorder: Plan The patient was admitted to the [facility] ([facility] health unit) on q15 min checks (behavioral with suicide precautions) for safety. It had been anticipated the patient would participate in group, recreational, and milieu therapies and will be offered additional individual and family sessions as clinically appropriate. Discussed resuming naltrexone, which pt does not want to start now due to risk of precipitated withdrawal (for which reason he also declined buprenorphine today). Will discharge today. Inventory Assets Strengths: supportive relationships, has local supports,voluntary, good insight, intelligent employed Needs: substance use disorder treatment Suicide Risk Level Suicide Risk Level: Low (q15 min observation checks) Risk Factors Assessment : Yes Do You Have Access To A Gun?: No Mental Health Diagnoses: No Substance Use Disorders: Yes Previous Attempt: No Previous Psychiatric Hospitalization: Yes Hopelessness: No Protective Factors Assessment Responsible for Young Children: Yes Employed: Yes Supportive Family: Yes Psychiatric History Identifying Data LISETH DOE is a 37-year-old M who currently lives in [place] in an apartment with his mother, has a history of substance use disorder, and was admitted on 02/04/23 03:30 on a 201 voluntary commitment for claims of suicidal thoughts. Chief Complaint "I just abused the system so I don't go to custodial for a year". History of Present Illness Pt reports that some time ago he went to the store and bought $532 of groceries but somehow had a small bottle of chocolate milk in his pocket, worth $1.89, which he was convicted of shoplifting for which he's on probation witih a suspended 1-year fpc sentence. He says he uses fentanyl daily, so every time he gets "called in for a piss test" he will say he's suicidal and get admitted to avoid the test. He says he's done this twice at [facility] prior to this admission. He scoffs at the notion that he might actually be suicidal, or have any psychiatric symptoms or need for treatment. 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 Pt says he's on buprenorphine without naloxone because he "got sick on Subutex" and had skin testing which showed a naloxone allergy. However, he says he's used oral naltrexone in the past without issue and found it helpful. Past Psychiatric History Previous Psych History: denies any actual psychiatric history Previous Psych Admissions: 2 at [facility], each to avoid a mandated urine toxicology screen that he knew he would fail Do You Have Access To A Gun?: No History of Previous Suicide Attempt: No Past Medication Trials: denies Allergies Allergy/AdvReac Type Severity Reaction Status Date / Time naloxone Allergy Severe Hives Unverified 02/04/23 14:43 tramadol Allergy Severe SEIZURE Verified 06/09/22 23:09 animal dander Allergy Intermediate WATERY Verified 06/09/22 23:09 EYES, RUNNY NOSE, SNEEZING Home Medications Medication Instructions Recorded Confirmed Type buprenorphine HCl 8 mg sublingual 8 mg sublingual 3XD 12/24/22 02/04/23 History tablet Alcohol History Hx of Alcohol Use Over the Past 12 Months: No AUDIT Total Score: 0 Smoking Use Have You Smoked or Used Tobacco Products in the Last 30 Days: No tobacco type: cigarettes Smoking Status: Never smoker Substance History Hx of Prescription Med Misuse Over the Past 12 Months: No Hx of Over the Counter Med Misuse Over the Past 12 Months: No Hx of Inhalent Misuse Over the Past 12 Months: No Hx of Organic Substance Use Over the Past 12 Months: Yes Hx of Illegal Substances/Street Drug Use Over Past 12 Months: Yes Problems as a Result of Past Substance Use: None Identified Personal History Living Arrangements: Home Beliefs That Will Affect Care: None Patient History Medical History (Updated 02/04/23 @ 14:48 by Faustino Lee MD) Asthma Cellulitis of scrotum Chronic pain Cocaine use disorder Depression Heroin abuse History of chronic back pain Malingering Mood disorder Opioid use disorder Penile edema Pneumonia (05/26/13) Surgical History No significant past surgical history Family History Other No significant family history Social History Smoking Status: Never smoker Do You Dip or Chew Tobacco: Yes; Hx Alcohol Use: Yes Alcohol type: hard liquor Hx Substance Use: Yes Last Used Substance: Just Prior to Arrival Last Used Substance Other:: Friday Preferred Language: Irish Communication Ability: Effective Silver Service Waiter Required: No Beliefs That Will Affect Care: None Current Living Situation: Alone current occupational status: employed Feels Safe at Home: Yes Gender Identity: Male Assistive Devices: None Review of Systems Psychiatric: no problem reported Physical Exam Psychiatric: Orientation: alert, oriented to person, oriented to place, oriented to time and cooperative Apperance: appropriately dressed, appropriately groomed and appeared stated age Eye Contact: good eye contact Motor Behavior: steady gait and station and no abnormal motor movements Speech: normal rate/rhythm/volume of speech Affect: euthymic affect euthymic mood Thought Process: goal directed thought process, linear/logical thought process and clear/coherent thought process Thought Content: reality based without delusions Suicidal Thoughts: denies suicidal thoughts, denies suicidal plan and denies suicidal intent Homicidal Thoughts: denies homicidal thoughts Hallucinations: no auditory hallucinations and no visual hallucinations Cogn ition: recent memory grossly intact, remote memory grossly intact, attention grossly intact and language grossly intact Estimated Intelligence: average estimated intelligence Insight: + fair insight Judgment: + fair judgement Vital Signs (Past 24 Hours): Last Vital Signs Temp 36.4 C 02/04/23 04:44 Pulse 55 L 02/04/23 04:44 Resp 18 02/04/23 04:44 BP 135/76 02/04/23 04:44 Pulse Ox 96 02/04/23 04:44 O2 Del Method Room Air 02/04/23 04:44 Exam Statement: A physical exam was performed in the ED for the purposes of medical clearance. I accept that physical as correct and adequate for the purposes of the inpatient physical exam. Results & Data (U) Laboratory Results Laboratory Results - last 24 hr 02/04/23 02/04/23 02/04/23 00:38 00:38 00:38 WBC 8.76 RBC 5.02 Hgb 13.2 L Hct 39.9 L MCV 79.5 L MCH 26.3 MCHC 33.1 RDW Std Deviation 37.0 RDW Coeff of Femi 13.1 Plt Count 260 MPV 11.1 Immature Gran % (Auto) 0.2 Neut % (Auto) 53.3 Lymph % (Auto) 30.1 [place] % (Auto) 11.0 Eos % (Auto) 4.9 Baso % (Auto) 0.5 Neut # (Auto) 4.67 Lymph # (Auto) 2.64 [place] # (Auto) 0.96 H Eos # (Auto) 0.43 Baso # (Auto) 0.04 Immature Gran # (Auto) 0.02 Sodium 136 Potassium 4.6 Chloride 103 Carbon Dioxide 27 Anion Gap 6 BUN 22 Creatinine 1.10 Est Cr Clr Drug Dosing 98.2 Est GFR ( Amer) 97.5 Est GFR (Non-Af Amer) 84.1 BUN/Creatinine Ratio 20.0 Glucose 117 H Calcium 9.1 Total Bilirubin 0.3 AST 23 ALT 20 Alkaline Phosphatase 69 Total Protein 7.3 Albumin 4.0 Globulin 3.3 Albumin/Globulin Ratio 1.2 TSH 3.829 Urine Color Urine Appearance Urine pH Ur Specific Novelty Urine Protein Urine Glucose (UA) Urine Ketones Urine Blood Urine Nitrite Urine Bilirubin Urine Urobilinogen Ur Leukocyte Esterase Salicylates Urine Opiates Screen Ur Methadone, Qual Acetaminophen Urine Barbiturates Ur Phencyclidine (PCP) U Amphetamin/Meth Scrn Urine MDEA MDMA (Ecstasy) Screen MDMA Urine MDMA U Benzodiazepines Scrn U Cocaine Confirm GC/MS Ur Cocaine Metabolite U Marijuana (THC) Screen Drug Screen Comment Ethyl Alcohol mg/dL SARS-CoV-2, RNA, NAAT 02/04/23 02/04/23 02/04/23 00:38 00:38 00:40 WBC RBC Hgb Hct MCV MCH MCHC RDW Std Deviation RDW Coeff of Femi Plt Count MPV Immature Gran % (Auto) Neut % (Auto) Lymph % (Auto) [place] % (Auto) Eos % (Auto) Baso % (Auto) Neut # (Auto) Lymph # (Auto) [place] # (Auto) Eos # (Auto) Baso # (Auto) Immature Gran # (Auto) Sodium Potassium Chloride Carbon Dioxide Anion Gap BUN Creatinine Est Cr Clr Drug Dosing Est GFR ( Amer) Est GFR (Non-Af Amer) BUN/Creatinine Ratio Glucose Calcium Total Bilirubin AST ALT Alkaline Phosphatase Total Protein Albumin Globulin Albumin/Globulin Ratio TSH Urine Color Yellow Urine Appearance Clear Urine pH 5.0 Ur Specific [place] 1.022 Urine Protein Negative Urine Glucose (UA) Negative Urine Ketones Negative Urine Blood Negative Urine Nitrite Negative Urine Bilirubin Negative Urine Urobilinogen Negative Ur Leukocyte Esterase Negative Salicylates < 3.0 L Urine Opiates Screen Ur Methadone, Qual Acetaminophen < 3 L Urine Barbiturates Ur Phencyclidine (PCP) U Amphetamin/Meth Scrn Urine MDEA MDMA (Ecstasy) Screen MDMA Urine MDMA U Benzodiazepines Scrn U Cocaine Confirm GC/MS Ur Cocaine Metabolite U Marijuana (THC) Screen Drug Screen Comment Ethyl Alcohol mg/dL < 10.0 SARS-CoV-2, RNA, NAAT 02/04/23 02/04/23 02/04/23 00:40 00:40 00:40 WBC RBC Hgb Hct MCV MCH MCHC RDW Std Deviation RDW Coeff of Femi Plt Count MPV Immature Gran % (Auto) Neut % (Auto) Lymph % (Auto) [place] % (Auto) Eos % (Auto) Baso % (Auto) Neut # (Auto) Lymph # (Auto) [place] # (Auto) Eos # (Auto) Baso # (Auto) Immature Gran # (Auto) Sodium Potassium Chloride Carbon Dioxide Anion Gap BUN Creatinine Est Cr Clr Drug Dosing Est GFR ( Amer) Est GFR (Non-Af Amer) BUN/Creatinine Ratio Glucose Calcium Total Bilirubin AST ALT Alkaline Phosphatase Total Protein Albumin Globulin Albumin/Globulin Ratio TSH Urine Color Urine Appearance Urine pH Ur Specific [place] Urine Protein Urine Glucose (UA) Urine Ketones Urine Blood Urine Nitrite Urine Bilirubin Urine Urobilinogen Ur Leukocyte Esterase Salicylates Urine Opiates Screen Neg Ur Methadone, Qual Neg Acetaminophen Urine Barbiturates Neg Ur Phencyclidine (PCP) Neg U Amphetamin/Meth Scrn Neg Urine MDEA Pending MDMA (Ecstasy) Screen Pos H MDMA Pending Urine MDMA Pending U Benzodiazepines Scrn Neg U Cocaine Confirm GC/MS Pending Ur Cocaine Metabolite Pos H U Marijuana (THC) Screen Neg Drug Screen Comment Pending Ethyl Alcohol mg/dL SARS-CoV-2, RNA, NAAT NEGATIVE Current Inpatient Medications Current Inpatient Medications: Current Inpatient Medications Acetaminophen (Acetaminophen 325 Mg Tab) 650 mg PO Q4H PRN PRN Reason: Headache or Minor Fever Stop: 03/06/23 04:36 Al Hydrox/Mg Hydrox/Simethicone (Aluminum/Magnesium Susp 30 Ml Udc) 30 ml PO Q4H PRN PRN Reason: GI Upset Stop: 03/06/23 04:36 Bismuth Subsalicylate (Bismuth Subsalicylate Liqd 236 Ml) 15 ml PO PRN PRN PRN Reason: Loose Stool Stop: 03/06/23 04:36 Hydroxyzine HCl (Hydroxyzine Hcl 25 Mg Tab) 50 mg PO HSZ PRN PRN Reason: Insomnia Stop: 03/06/23 04:36 Hydroxyzine HCl (Hydroxyzine Hcl 25 Mg Tab) 25 mg PO Q4H PRN PRN Reason: Anxiety Stop: 03/06/23 04:36 Magnesium Hydroxide (Magnesium Hydroxide Susp 30 Ml Udc) 30 ml PO DAILY PRN PRN Reason: Constipation Stop: 03/06/23 04:36 Sodium Chloride (Sodium Chloride 0.65% Na Soln 45 Ml ([place])) 1 - 2 sprays NA PRN PRN PRN Reason: Nasal Dryness/Congestion Stop: 03/06/23 04:36
[2023-02-04] MEDS ORDERED: buprenorphine HCL 8 MG SUBL SL SCH (14:00)
--- NOTE | 2023-02-04 14:59 | Discharge Summary ---
Date of Service February 04, 2023 History of Present Illness Pt reports that some time ago he went to the store and bought $532 of groceries but somehow had a small bottle of chocolate milk in his pocket, worth $1.89, which he was convicted of shoplifting for which he's on probation witih a suspended 1-year long-term sentence. He says he uses fentanyl daily, so every time he gets "called in for a piss test" he will say he's suicidal and get admitted to avoid the test. He says he's done this twice at [facility] prior to this admission. He scoffs at the notion that he might actually be suicidal, or have any psychiatric symptoms or need for treatment. 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 Pt says he's on buprenorphine without naloxone because he "got sick on Subutex" and had skin testing which showed a naloxone allergy. However, he says he's used oral naltrexone in the past without issue and found it helpful. Physical Exam Psychiatric Orientation: alert, oriented to person, oriented to place, oriented to time and cooperative Apperance: appropriately dressed, appropriately groomed and appeared stated age Eye Contact: good eye contact Motor Behavior: steady gait and station and no abnormal motor movements Speech: normal rate/rhythm/volume of speech Affect: euthymic affect Thought Process: goal directed thought process, linear/logical thought process and clear/coherent thought process Thought Content: reality based without delusions Suicidal Thoughts: denies suicidal thoughts, denies suicidal plan and denies suicidal intent Homicidal Thoughts: denies homicidal thoughts Hallucinations: no auditory hallucinations and no visual hallucinations Cognition: recent memory grossly intact, remote memory grossly intact, attention grossly intact and language grossly intact Estimated Intelligence: average estimated intelligence Insight: + fair insight Judgment: + fair judgement Vital Signs (Past 24 Hours) Last Vital Signs Temp 36.4 C 02/04/23 04:44 Pulse 55 L 02/04/23 04:44 Resp 18 02/04/23 04:44 BP 135/76 02/04/23 04:44 Pulse Ox 96 02/04/23 04:44 O2 Del Method Room Air 02/04/23 04:44 See admission H&P and DOD assessment. Principal Diagnosis Malingering Psychiatric Data See daily stay summary. In short, safety was maintained and the patient was cooperative with care. Medication changes included addition of naltrexone which they reported having tolerated well in the past. A family session was not held and safety plan was completed prior to discharge. Day of Discharge Assessment Today the patient voices readiness for discharge. They note improvement in mood and deny thoughts to harm self or others. Thoughts remain organized and they are improved from admission. There is no evidence of psychosis. They agree to take mediations as prescribed and keep follow-up appointments. They are stable for discharge to outpatient level of care. Transition of Care Transition Of Care Record: was reviewed with the patient Advance Directives Advance Directives Information Provided: Yes Advance Directives: No Mental Health Advance Directive: No Advance Directives on File: No Living Will: No Power of Resp Therapist: No Advance Directives Reason:: Declines as Mental Health Visit. Suicide Risk Level Suicide Risk Level: Low (q15 min observation checks) Risk Factors Assessment : Yes Do You Have Access To A Gun?: No Mental Health Diagnoses: No Substance Use Disorders: Yes Previous Attempt: No Previous Psychiatric Hospitalization: Yes Hopelessness: No Protective Factors Assessment Responsible for Young Children: Yes Employed: Yes Supportive Family: Yes Total Time Total Time Spent: Greater Than 30 Minutes Total Time Includes: Examination of the patient, Discharge Planning, Medication Reconciliation and As well as (documentation) Discharge Data Lab Results 02/04/23 02/04/23 02/04/23 00:38 00:38 00:38 WBC 8.76 RBC 5.02 Hgb 13.2 L Hct 39.9 L MCV 79.5 L MCH 26.3 MCHC 33.1 RDW Std Deviation 37.0 RDW Coeff of Femi 13.1 Plt Count 260 MPV 11.1 Immature Gran % (Auto) 0.2 Neut % (Auto) 53.3 Lymph % (Auto) 30.1 [place] % (Auto) 11.0 Eos % (Auto) 4.9 Baso % (Auto) 0.5 Neut # (Auto) 4.67 Lymph # (Auto) 2.64 [place] # (Auto) 0.96 H Eos # (Auto) 0.43 Baso # (Auto) 0.04 Immature Gran # (Auto) 0.02 Sodium 136 Potassium 4.6 Chloride 103 Carbon Dioxide 27 Anion Gap 6 BUN 22 Creatinine 1.10 Est Cr Clr Drug Dosing 98.2 Est GFR ( Amer) 97.5 Est GFR (Non-Af Amer) 84.1 BUN/Creatinine Ratio 20.0 Glucose 117 H Calcium 9.1 Total Bilirubin 0.3 AST 23 ALT 20 Alkaline Phosphatase 69 Total Protein 7.3 Albumin 4.0 Globulin 3.3 Albumin/Globulin Ratio 1.2 TSH 3.829 Urine Color Urine Appearance Urine pH Ur Specific [place] Urine Protein Urine Glucose (UA) Urine Ketones Urine Blood Urine Nitrite Urine Bilirubin Urine Urobilinogen Ur Leukocyte Esterase Salicylates Urine Opiates Screen Ur Methadone, Qual Acetaminophen Urine Barbiturates Ur Phencyclidine (PCP) U Amphetamin/Meth Scrn MDMA (Ecstasy) Screen U Benzodiazepines Scrn Ur Cocaine Metabolite U Marijuana (THC) Screen Ethyl Alcohol mg/dL SARS-CoV-2, RNA, NAAT 02/04/23 02/04/23 02/04/23 00:38 00:38 00:40 WBC RBC Hgb Hct MCV MCH MCHC RDW Std Deviation RDW Coeff of Femi Plt Count MPV Immature Gran % (Auto) Neut % (Auto) Lymph % (Auto) [place] % (Auto) Eos % (Auto) Baso % (Auto) Neut # (Auto) Lymph # (Auto) [place] # (Auto) Eos # (Auto) Baso # (Auto) Immature Gran # (Auto) Sodium Potassium Chloride Carbon Dioxide Anion Gap BUN Creatinine Est Cr Clr Drug Dosing Est GFR ( Amer) Est GFR (Non-Af Amer) BUN/Creatinine Ratio Glucose Calcium Total Bilirubin AST ALT Alkaline Phosphatase Total Protein Albumin Globulin Albumin/Globulin Ratio TSH Urine Color Yellow Urine Appearance Clear Urine pH 5.0 Ur Specific [place] 1.022 Urine Protein Negative Urine Glucose (UA) Negative Urine Ketones Negative Urine Blood Negative Urine Nitrite Negative Urine Bilirubin Negative Urine Urobilinogen Negative Ur Leukocyte Esterase Negative Salicylates < 3.0 L Urine Opiates Screen Ur Methadone, Qual Acetaminophen < 3 L Urine Barbiturates Ur Phencyclidine (PCP) U Amphetamin/Meth Scrn MDMA (Ecstasy) Screen U Benzodiazepines Scrn Ur Cocaine Metabolite U Marijuana (THC) Screen Ethyl Alcohol mg/dL < 10.0 SARS-CoV-2, RNA, NAAT 02/04/23 02/04/23 00:40 00:40 WBC RBC Hgb Hct MCV MCH MCHC RDW Std Deviation RDW Coeff of Femi Plt Count MPV Immature Gran % (Auto) Neut % (Auto) Lymph % (Auto) [place] % (Auto) Eos % (Auto) Baso % (Auto) Neut # (Auto) Lymph # (Auto) [place] # (Auto) Eos # (Auto) Baso # (Auto) Immature Gran # (Auto) Sodium Potassium Chloride Carbon Dioxide Anion Gap BUN Creatinine Est Cr Clr Drug Dosing Est GFR ( Amer) Est GFR (Non-Af Amer) BUN/Creatinine Ratio Glucose Calcium Total Bilirubin AST ALT Alkaline Phosphatase Total Protein Albumin Globulin Albumin/Globulin Ratio TSH Urine Color Urine Appearance Urine pH Ur Specific [place] Urine Protein Urine Glucose (UA) Urine Ketones Urine Blood Urine Nitrite Urine Bilirubin Urine Urobilinogen Ur Leukocyte Esterase Salicylates Urine Opiates Screen Neg Ur Methadone, Qual Neg Acetaminophen Urine Barbiturates Neg Ur Phencyclidine (PCP) Neg U Amphetamin/Meth Scrn Neg MDMA (Ecstasy) Screen Pos H U Benzodiazepines Scrn Neg Ur Cocaine Metabolite Pos H U Marijuana (THC) Screen Neg Ethyl Alcohol mg/dL SARS-CoV-2, RNA, NAAT NEGATIVE Hospital Course (1) Malingering: (2) Opioid use disorder: (3) Cocaine use disorder: Plan The patient was admitted to the [facility] ([facility]) on q15 min checks (behavioral with suicide precautions) for safety. It had been anticipated the patient would participate in group, recreational, and milieu therapies and will be offered additional individual and family sessions as clinically appropriate. Discussed resuming naltrexone, which pt does not want to start now due to risk of precipitated withdrawal (for which reason he also declined buprenorphine today). Will discharge today. Mental Health & Subst Abuse Tx Psychiatrist Name of Psychiatrist: Declined Therapist Name of Therapist: Declined Transit Police Officer Name of Transit Police Officer: None Post Discharge Appointments Primary Care Physician Name Of Family Doctor/PCP: Ivelisse Pablo Primary Care Time of Appointment with PCP: Please follow up with your PCP as needed. Provider Appointment Comment: [id number] [place] [id number] Other #1: Name of Aftercare Appointment: [facility] Phone Number of Aftercare Appointment: [phone] Date of Aftercare Appointment: 02/24/23 Time of Aftercare Appointment: Please confirm appointment time with [facility]. Aftercare Appointment Comment: [address] [facility] [id number] Release of Information Aftercare Appointment: Obtained, Reviewed and Signed Contact Information Discharge Discharge Address: [address] [place] [id number] Discharge Plan Discharge Items Patient Disposition: Home - Self-Care Reason For Visit: MAJOR DEPRESSIVE DISORDER Discharge Diagnosis: Malingering Activity: Resume your previous activity Non-emergency contact: Primary Care Provider and Psychiatrist Call non-emergency contact if: you have any medication questions and your symptoms worsen Follow-up/Referrals: Faustino Pablo MD [Primary Care Provider] - Diet: Regular Addtl Attending Provider Instructions: SPECIAL CARE INSTRUCTIONS: 1. Follow through with your scheduled aftercare appointments. If unable to keep an appointment, please call to reschedule. 2. Take your medication only as prescribed. Medication should not be changed or stopped without the approval of your doctor. In the event of worsening symptoms or concerns about side effects, contact your doctor immediately. 3. Utilize new healthy coping skills, anger management skills, and stress management skills learned during your hospitalization. Journal feelings and process them with a support person. Identify stressors or situations that may result in relapse, deterioration or inappropriate behaviors and develop a plan to deal with those issues. 4. If your coping skills are ineffective and you are in crisis, contact your outpatient providers for direction. If unable to reach your providers, please call the [facility] CRISIS LINE AT , go to the [facility] walk-in center at [address], [address], [place], or go to the closest Emergency Room. 5. Avoid alcohol and un-prescribed drugs. 6. You have been provided with the Mental Health Advance Directives Pamphlet for your review. 7. Your condition is stable for discharge to outpatient level of care, but recovery is an ongoing process. Ifthoughts to harm yourself or others return, follow the safety plan developed during your stay. Planning for a safe return home includes securing weapons. Our treatment team recommends weaponsbe removed from the home until your outpatient provider reassesses your progress. In rare cases where the items themselvescannot be removed, guns and ammunitionshould be secured separatelyand keys stored by a reliable personoutside of the home. If you were admitted on an involuntary commitment, the police or other legal authorities may be involved in this process. AFTERCARE APPOINTMENTS: * Please call your insurance company prior to your scheduled appointment to confirm your aftercare providers are covered. Take your insurance information to your appointments. WHO TO CALL AND WHEN: Medical Emergencies: For questions or emergencies related to your hospital stay, please contact the Inpatient Behavioral Health Unit at [phone]. A perinatal nurse is on-call 24/03 for the Behavioral Health Unit for emergencies At any time you feel your situation is an emergency, you may also call 911 immediately. Pending Studies at Discharge: No Stand-Alone Forms: My [facility] [employer], Smoking Cessation Medications and DC Order Prescriptions: New naltrexone 50 mg tablet 50 mg PO DAILY 30 Days Qty: 30 0RF Continued buprenorphine HCl 8 mg tablet, sublingual 8 mg SUBLINGUAL 3XD Discharge Orders: Discharge Order (Routine); Ordered 02/04/23 Ordered By: Faustino Lee Admission Data Admit Date/Time: 02/04/23 03:30 Attending Provider: Faustino Lee Admit Provider: Faustino Lee Primary Care Provider: Faustino Pablo Other Interventions: PSY Interdisciplinary Discharge Planning Last Done: 02/04/23 13:34 Coding Level of Care Code 57926 D/C day mgmt > 30 min Diagnoses Malingering Z76.5 Opioid use disorder F11.90 Cocaine use disorder F14.10 Time Spent (min) 31
== END 2023-02-04 15:35 | disposition home or self-care (01) | DRG 951 ==
LOC: ED 23:57 → 3S 02-04 03:30